=== PATIENT | female | born 1985 | race Caucasian/White ===

== ENCOUNTER 2024-04-29 19:50 | Emergency (ER) | payer OTHER, SELFPAY ==
[2024-04-29 20:04] VITALS: BP 125/78; PULSE 105; TEMP 36.8; O2SAT 98; BMI 55.2
--- NOTE | 2024-04-29 20:22 | ED_ITS ---
HPI HPI - General Adult General Chief complaint: Back Pain/Injury Stated complaint: BACK PAIN Time Seen by Provider: 04/29/24 19:53 Source: patient Mode of arrival: walk-in Limitations: no limitations History of Present Illness HPI narrative: Patient is a 38-year-old female who presents to the emergency department for evaluation of right posterior hip pain radiating into the right leg. Patient states she has a history of right-sided sciatica similarly in the past and last had imaging about 3 years ago. She states she was at work when she ana her back going down icy stairs. She had no fall to the ground or direct trauma. She has not had any bowel or bladder incontinence. She does have pain radiating down the back of the right leg with occasional tingling. She has a possibility of . She is able to ambulate. Related Data Previous Rx's ?Medication ?Instructions ?Recorded methocarbamol 750 mg tablet 750 mg PO TID PRN pain #20 tabs 04/29/24 methylprednisolone 4 mg tablets in See Rx Instructions .Route 04/29/24 a dose pack (Medrol (Elmer)) .COMPLEX #21 ea ondansetron 4 mg disintegrating 4 mg PO Q6H PRN nausea and 04/29/24 tablet vomiting #12 tabs oxycodone-acetaminophen 5 mg-325 1 tab PO Q6H PRN pain 4 days #15 04/29/24 mg tablet (Percocet) tabs Allergies Allergy/AdvReac Type Severity Reaction Status Date / Time No Known Drug Allergies Allergy Verified 04/29/24 20:10 Opioid HPI Opioid Management Most Recent Opioid Data: Last Pain Scale 8 04/29/24 20:22 04/29/24 Last ED Pain Assessment 04/29/24 20:22 Review of Systems ROS Constitutional Denies: fever or chills Ears, nose, mouth, and throat Denies: throat pain or nasal congestion Respiratory Denies: shortness of breath Gastrointestinal Denies: nausea or vomiting Integumentary/Breast Denies: rash Neurological Reports: numbness in extremities Hematologic/Lymphatic Denies: easy bruising or easy bleeding PFSH PFSH Social History Little interest or pleasure in doing things: not at all Feeling down, depressed, or hopeless: not at all Exam Narrative Exam Narrative: Gen.: Awake, alert, in no distress Head: Normocephalic, atraumatic ENT: Moist mucous membranes Respiratory: No respiratory distress Back: No bony point tenderness of the lumbar spine with diffuse tenderness of the right paraspinal muscles of the lumbar spine and right posterior hip. Extremities: Moves extremities equally, normal dorsiflexion and plantarflexion of the lower extremities, normal hip flexion bilaterally. No decrease in sensation to the medial thighs Psych: Normal mood and affect Neuro: No focal neuro deficit Skin: Warm, dry, intact Constitutional Vital Signs, click to edit/add: Last Vital Signs Temp 98.2 F 04/29/24 20:04 Pulse 105 H 04/29/24 20:04 Resp 16 04/29/24 20:04 BP 125/78 04/29/24 20:04 Pulse Ox 98 04/29/24 20:04 Course Vital Signs Vital signs: Vital Signs Temperature 98.2 F 04/29/24 20:04 Pulse Rate 105 H 04/29/24 20:04 Respiratory Rate 16 04/29/24 20:04 Blood Pressure 125/78 04/29/24 20:04 Pulse Oximetry 98 04/29/24 20:04 Temperature 98.2 F 04/29/24 20:04 Pulse Rate 105 H 04/29/24 20:04 Respiratory Rate 16 04/29/24 20:04 Blood Pressure 125/78 04/29/24 20:04 Pulse Oximetry 98 04/29/24 20:04 Medical Decision Making MDM Narrative Medical decision making narrative: Exam is consistent with an acute exacerbation of right-sided sciatica secondary to lumbar strain at work. Pain medicated for pain in the ER and discharged on a course of analgesics. Rest, ice, gentle stretching. She has no focal neurodeficits in the ER. She has had previous imaging for sciatica for her b ack, she did not have any direct injury or trauma to the back last week so I do not feel additional imaging is indicated at this time. Return to the ER if symptoms change or worsen. SUPERVISED APC VISIT, PHYSICIAN ATTESTATION: Based on the medical record the care appears appropriate. ? Medical Records Medical records reviewed: Yes I reviewed the patient's medical records Discharge Plan Discharge Chief Complaint: Back Pain/Injury Clinical Impression: Acute right-sided back pain with sciatica Patient Disposition: Home, Self-Care Time of Disposition Decision: 20:17 Condition: Good Prescriptions / Home Meds: New oxycodone-acetaminophen [Percocet] 5-325 mg tablet 1 tab PO Q6H PRN (Reason: pain) 4 Days Qty: 15 0RF Rx Instructions: DX: M54.5 methocarbamol 750 mg tablet 750 mg PO TID PRN (Reason: pain) Qty: 20 0RF methylprednisolone [Medrol (Elmer)] 4 mg tablets,dose pack See Rx Instructions .ROUTE .COMPLEX Qty: 21 0RF Rx Instructions: Taper as directed ondansetron 4 mg tablet,disintegrating 4 mg PO Q6H PRN (Reason: nausea and vomiting) Qty: 12 0RF Print Language: Colombian Instructions: Sciatica (ED) Referrals: Physician,Non-Staff, MD [Primary Care Provider] - 1 week
[2024-04-29] MEDS: ORPHENADRINE 60 MG/ 2 ML VIAL IM (20:44)
[2024-04-29] MEDS: KETOROLAC TROMETHAMINE 60 MG/2 ML VIAL IM (20:44)
[2024-04-29] MEDS: OXYCODONE HCL/ACETAMINOPHEN 5MG/325MG 1 TAB PO (20:45)
== END 2024-04-29 20:55 | disposition home or self-care (01) ==
PROVIDERS: Emergency Provider Student in an Organized Health Care Education/Training Program
DX: M54.41 Lumbago with sciatica, right side (principal)
CPT/HCPCS: 96372; 99284; J1885; J2360

== ENCOUNTER 2024-06-16 15:22 | Emergency (ER) | payer BC, SELFPAY ==
[2024-06-16 15:25] VITALS: BP 126/80; PULSE 99; TEMP 36.8; O2SAT 98; BMI 25.0
--- OUTSIDE RECORDS SUMMARY | 2024-06-16 15:44 | XMS_ITS | CCD ---
Author Organization [facility] Care Team Providers Care Line Crew Supervisor Name Role Phone NO FAMILY, PHYSICIAN Primary Care Provider Unava ilable Radatz DO, Edward Attending Provider Radatz Jr, Edward Admitting Unavailable NO FAMILY, PHYSICIAN Primary Care Unavailable Radatz Jr, Edward Attending Unavailable Radatz Jr, Edward Admitting Unavailable NO FAMILY, PHYSICIAN Primary Care Unavailable Radatz Jr, Edward Attending Unavailable Radatz Jr, Edward Attending Unavailable Radatz Jr, Edward Admitting Unavailable NO FAMILY, PHYSICIAN Primary Care Unavailable Radatz Jr, Edward Admitting Unavailable NO FAMILY, PHYSICIAN Primary Care Unavailable Radatz Jr, Edward Attending Unavailable Radatz Jr, Edward Admitting Unavailable NO FAMILY, PHYSICIAN Primary Care Unavailable Radatz Jr, Edward Attending Unavailable Radatz Jr, Edward Admitting Unavailable NO FAMILY, PHYSICIAN Primary Care Unavailable Radatz Jr, Edward Attending Unavailable Radatz Jr, Edward Admitting Unavailable NO FAMILY, PHYSICIAN Primary Care Unavailable Radatz Jr, Edward Attending Unavailable Problems Problem Classification Problem Date Documented Da te Episodic/Chronic Sprains and strains (1 source) Strain of muscle, fascia and tendon of lower back, initial encounter; Translations: [Strain of muscle, fascia and tendon of lower back, initial encounter] Onset: 06-10-2024 Episodic Unclassified (1 source) Low back pain, unspecified; Translations: [Low back pain, unspecified] Onset: 05-28-2024 Results Test Name Value Interpretation Reference Range Facil ity Magnetic resonance imaging r eportOrdered By: Tom Hauser on 06-10-2024 Study report [facility] [place] [address] [place], [place] [id number] MRI Report Signed Patient: Isi Chong MR#: [id number] : 1985 Acct:[id number] Age/Sex: 39 / F ADM Date: 5 Loc: [facility] Room: Type: [facility] Attending Dr: Thor Coyne Jr, DO Copies to: Thor Coyne DO~ Ordering Provider: Thor Coyne DO Date of Service: 06/10/24 MR/MR lumbar spine wo con: S39.012A ([id number]) XR/XR pre/post mri xray: S39.012A 2 views of the lumbar spine and MRI of the lumbar spine performed without contrast INDICATION: Back injury in April, pain since COMPARISON: None FINDINGS: 2 views of the lumbar spine demonstrates maintenance of the lumbar vertebral heights. There is retrolisthesis L3 on L4 and L2-L3 measuring 3 mm and 4 mm respectively. There is moderate severe disc space narrowing L2-L3 and L5-S1 and mild disc space narrowing elsewhere. Tjfg-ci-xcxwwcmu facet arthropathy L4-S1. Mild degenerative changes of the sacroiliac joints. MRI lumbar spine: Lumbar vertebral heights are maintained. Minimal straightening. Degenerative endplate marrow changes L5-S1 L2-L3. The conus medullaris terminates normally at L1-L2. The paraspinal soft tissues are unremarkable T11-L1: No significant disease, disc protrusion central canal or neural from narrowing. L1-2: Broad-based disc bulge with small left subarticular protrusion. Mild facet arthropathy. Canal and neural foraminal are patent. L2-3: Circumferential bulge. Small superimposed central protrusion extending cranially. No central canal narrowing. There is minor neural foraminal narrowing. Mild facet arthropathy L3-4: Minimal broad-based bulge. Qegf-tr-vanvptfs facet arthropathy. No central canal or neural foraminal narrowing identified. L4-5: Broad-based disc bulge with intrinsic T2 hyperintensity both foramina zones suggestive of fissuring. Moderate facet arthropathy. Minimal neural foraminal narrowing. Canal is patent. L5-S1: Circumferential disc bulge with moderate subarticular zone extrusion measuring 1.1 x 2.1 x 1.4 cm size this displaces the traversing left S1 nerve roots. There may be minimal mass effect on the traversing right S1 nerve root as well. Mild canal narrowing. There is minimal neural foraminal narrowing. Moderate facet arthropathy. MR/MR lumbar spine wo con IMPRESSION: Degenerative changes notably at L2-3 and L5-S1 with moderate size disc extrusion at L5-S1 displacing the left S1 nerve root. Please correlate with left S1 radiculopathy. Otherwise negative for acute compression fracture. Otherwise Yfhb-ij-ppmztyex multilevel degenerative change. Impression dictated by: Tom Hauser M.D.06/10/2024 3:40 PM Dictation Location: [place] [address] Transcribed By: [facility] 06/10/24 1540 Dictated By: Tom Hauser MD 06/10/24 1530 Signed By: 06/10/24 1540 [facility] Work Phone: XR pre/post mri xrayon 06-10 XR pre/post mri xray [facility] [place] [address] MRI Report Signed Patient: Isi Chong MR#: [id number] : 1985 Acct:[id number] Age/Sex: 39 / F ADM Date: 06/10/24 Loc: [facility] Room: Type: [facility] Attending Dr: Thor Coyne Jr, DO Copies to: Thor Coyne DO Ordering Provider: Thor Coyne DO Date of Service: 06/10/24 MR/MR lumbar spine wo con: S39.012A ([id number]) XR/XR pre/post mri xray: S39.012A 2 views of the lumbar spine and MRI of the lumbar spine performed without contrast INDICATION: Back injury in April, pain since COMPARISON: None FINDINGS: 2 views of the lumbar spine demonstrates maintenance of the lumbar vertebral heights. There is retrolisthesis L3 on L4 and L2-L3 measuring 3 mm and 4 mm respectively. There is moderate severe disc space narrowing L2-L3 and L5-S1 and mild disc space narrowing elsewhere. Svrk-gc-zzpooghz facet arthropathy L4-S1. Mild degenerative changes of the sacroiliac joints. MRI lumbar spine: Lumbar vertebral heights are maintained. Minimal straightening. Degenerative endplate marrow changes L5-S1 L2-L3. The conus medullaris terminates normally at L1-L2. The paraspinal soft tissues are unremarkable T11-L1: No significant disease, disc protrusion central canal or neural from narrowing. L1-2: Broad-based disc bulge with small left subarticular protrusion. Mild facet arthropathy. Canal and neural foraminal are patent. L2-3: Circumferential bulge. Small superimposed central protrusion extending cranially. No central canal narrowing. There is minor neural foraminal narrowing. Mild facet arthropathy L3-4: Minimal broad-based bulge. Bjcr-eq-xtqqffys facet arthropathy. No central canal or neural foraminal narrowing identified. L4-5: Broad-based disc bulge with intrinsic T2 hyperintensity both foramina zones suggestive of fissuring. Moderate facet arthropathy. Minimal neural foraminal narrowing. Canal is patent. L5-S1: Circumferential disc bulge with moderate subarticular zone extrusion measuring 1.1 x 2.1 x 1.4 cm size this displaces the traversing left S1 nerve roots. There may be minimal mass effect on the traversing right S1 nerve root as well. Mild canal narrowing. There is minimal neural foraminal narrowing. Moderate facet arthropathy. MR/MR lumbar spine wo con IMPRESSION: Degenerative changes notably at L2-3 and L5-S1 with moderate size disc extrusion at L5- S1 displacing the left S1 nerve root. Please correlate with left S1 radiculopathy. Otherwise negative for acute compression fracture. Otherwise Mbik-sa-rwmlbzgl multilevel degenerative change. Impression dictated by: Tom Huaser M.D.06/10/2024 3:40 PM Dictation Location: [place] [address] Transcribed By: ROBINSON 06/10/24 1540 Dictated By: Tom Hauser MD 06/10/24 1530 Signed By: 06/10/[address] [facility] Encounters Encounter Date Encounter Type Care Provider Facility Start: 06-12-2024 End: 06-12-2024 ambulatory PHYSICIAN NO [facility] Work Phone: Start: 06-12-2024 End: 06-12-2024 Patient encounter procedure PHYSICIAN NO [facility] [address] Work Phone: Start: 06-10-2024 End: 06-10-2024 Patient encounter procedure PHYSICIAN NO [facility] [address] [facility] Work Phone: Start: 06-10-2024 End: 06-10-2024 ambulatory PHYSICIAN NO [facility] Work Phone: Start: 06-02-2024 End: 06-02-2024 Patient encounter procedure PHYSICIAN NO [facility] [address] Work Phone: Start: 06-02-2024 End: 06-02-2024 ambulatory PHYSICIAN NO [facility] Work Phone: Start: 05-28-2024 ambulatory Thor Galeas ty:[facility] Start: 05-28-2024 Registered Recurring PHYSICIAN NO [facility] [place] Work Phone: Start: 05-19-2024 End: 05-19-2024 Patient encounter procedure PHYSICIAN NO [facility] [address] Work Phone: Start: 05-19-2024 End: 05-19-2024 ambulatory PHYSICIAN NO [facility] Work Phone: Start: 05-14-2024 Registered Recurring PHYSICIAN NO [facility] [place] Work Phone: Start: 05-12-2024 End: 05-12-2024 ambulatory PHYSICIAN NO [facility] Work Phone: Start: 05-12-2024 End: 05-12-2024 Patient encounter procedure PHYSICIAN NO [facility] [address] Work Phone: Start: 05-06-2024 End: 05-06-2024 ambulatory PHYSICIAN NO [facility] Work Phone: Start: 05-06-2024 End: 05-06-2024 Patient encounter procedure PHYSICIAN NO [facility] [address] Work Phone: Procedures Date Procedure Procedure Detail Performing Clinician Start: 06-10-2024 MR lumbar spine wo con PHYSICIAN NO FAMILY Start: 06-10-2024 XR pre/post mri xray PH YSICIAN NO FAMILY Payers Date Payer Category Payer Self-pay 2024 Unknown [id number] 2.16.8 [id number] Unknown [id number] 2.16.8 [id number] Unknown [id number] 2.16.8 [id number] Unknown [id number] 2.16.8 [id number] Unknown [id number] 2.16.8 [id number] Unknown [id number] 2.16.8 [id number] Unknown [id number] 2.16.8 [id number] Social History Date Type Detail Facility Tobacco smoking stat [facility] Unknown if ever smoked [facility] Work Phone: Start: 05-12-2024 End: 06-16-2024 Sex Female (finding) [facility] Start: 1985 Sex Assigned At Female F [facility] Evaluation note Note Date & Type Note Facility Evaluation note No assessment information availa ble [facility] Work Phone: Chief Complaint and Reason for Visit Chief Complaint Admit Date S39.012A May 06, 2024 9 :00am Chief Complaint Admit Date S39.012A May 06, 2024 9 :00am S39.012A May 12, 2024 1 0:15am low back strain May 14, 2024 9 :15am S39.012A, M54.5 May 19, 2024 2 :06pm Chief Complaint Admit Date S39.012A May 06, 2024 9 :00am S39.012A May 12, 2024 1 0:15am S39.012A May 19, 2024 2 :06pm low back strain May 28, 2024 11:15am S39.012A June 02, 2024 1:53pm Chief Complaint Admit Date S39.012A May 06, 2024 9 :00am S39.012A May 12, 2024 1 0:15am S39.012A May 19, 2024 2 :06pm low back strain May 28, 2024 11:15am S39.012A June 02, 2024 1:53pm M54.5 S39.012A June 10, 2024 11:17am Chief Complaint Admit Date S39.012A May 06, 2024 9 :00am S39.012A May 12, 2024 1 0:15am S39.012A May 19, 2024 2 :06pm low back strain May 28, 2024 11:15am S39.012A June 02, 2024 1:53pm M54.5 S39.012A June 10, 2024 11:17am S39.012A June 12, 2024 1:00pm Family History No Family History Records Found Relationship Condition Age at Onset Recorded Date/T kira father Heart disease Unknown Hypertension Unknown mother Heart disease Unknown Advance Directives No Advanced Directives Records Found Advance Directive Response Recorded Date/ Time Advance Directives No May 07, 2024 1:49pm Summary Purpose Additional Source Comments Care Teams (unrecognized sec tion and content) Team Status: Active Member Role Status Dates PHYSICIAN NO FAMILY Primary Care Provider Active Team Status: Inactive Member Role Status Dates PHYSICIAN NO FAMILY Primary Care Provider Active Start: May 06, 2024 End: May 06, 2024 Thor Coyne Jr, DO Attending Provider Active S tart: May 06, 2024 End: May 06, 2024 Team Status: Inactive Member Role Status Dates PHYSICIAN NO FAMILY Primary Care Provider Active Start: May 12, 2024 End: May 12, 2024 Thor Coyne Jr, DO Attending Provider Active S tart: May 12, 2024 End: May 12, 2024 Team Status: Active Member Role Status Dates PHYSICIAN NO FAMILY Primary Care Provider Active Start: May 14, 2024 Thor Coyne Jr, DO Attending Provider Active S tart: May 14, 2024 Team Status: Inactive Member Role Status Dates PHYSICIAN NO FAMILY Primary Care Provider Active Start: May 19, 2024 End: May 19, 2024 Thor Coyne Jr, DO Attending Provider Active S tart: May 19, 2024 End: May 19, 2024 Team Status: Active Member Role Status Dates PHYSICIAN NO FAMILY Primary Care Provider Active Start: May 28, 2024 Thor Coyne Jr, DO Attending Provider Active S tart: May 28, 2024 Team Status: Inactive Member Role Status Dates PHYSICIAN NO FAMILY Primary Care Provider Active Start: June 02, 2024 End: June 02, 2024 Edtameka Coyne Jr, DO Attending Provider Active S tart: June 02, 2024 End: June 02, 2024 Team Status: Inactive Member Role Status Dates PHYSICIAN NO FAMILY Primary Care Provider Active Start: June 10, 2024 End: June 10, 2024 Edtameka Coyne Jr, DO Attending Provider Active S tart: June 10, 2024 End: June 10, 2024 Team Status: Inactive Member Role Status Dates PHYSICIAN NO FAMILY Primary Care Provider Active Start: June 12, 2024 End: June 12, 2024 Redtameka Doretha Miguel, DO Attending Provider Active S tart: June 12, 2024 End: June 12, 2024 Goals (unrecognized section and content) Goals may be documented in a n alternate sectionGoals may be documented in an alternate sectionGoals may be documented in an alternate sectionGoals may be documented in an alternate sectionGoals may be documented in an alternate sectionGoals may be documented in an alternate section INFORMATION SOURCE (unrecogn ized section and content) DATE CREATED AUTHOR 06/16/2024 [facility] FOR RECORDS PERTAINING TO PATIENTS WHO ARE OR HAVE BEEN ENROLLED IN A CHEMICAL DEPENDENCY/SUBSTANCEABUSE PROGRAM, SOME INFORMATION MAY BE OMITTED. This clinical summary was aggregated from multiple sources. Caution should be exercised in using it in the provision of clinical care. This summary normalizes information from multiple sources, and as a consequence, information in this document may materially change the coding, format and clinical context of patient data. In addition, data may be omitted in some cases. CLINICAL DECISIONS SHOULD BE BASED ON THE PRIMARY CLINICAL RECORDS. [facility]. provides no warranty or guarantee of the accuracy or completeness of information in this document.
--- NOTE | 2024-06-16 17:27 | ED.GENADUL1 ---
HPI HPI - General Adult General Chief complaint: Back Pain/Injury Stated complaint: Back Pain Time Seen by Provider: 06/16/24 15:57 Source: patient Mode of arrival: walk-in Limitations: no limitations History of Present Illness HPI narrative: Patient is a 39-year-old female who is presenting with acute on chronic pain. Patient works for the [employer], so does her who is at bedside as well. Patient appears to be in moderate to severe distress secondary to pain. Patient has no loss of urine or bowels in her pants. Patient has significant lower back pain, left lower back pain that radiates into the left buttock and down her left leg into her left pinky toe. Patient did have a MRI that was done on June 10, last week. Patient had a MRI of her lumbar spine without contrast . On June 10, last week. See the report has been scanned into the chart. Clinical patient on the MRI of the lumbar spine is degenerative changes notably at L2-3 and L5-S1 with moderate size disc of trusion at L5-S1 displacing the left S1 nerve root. Patient also has evidence of S1 radiculopathy that correlates with the MRI. Patient has oxycodone, Robaxin and ibuprofen at home. She has not been using the medication because she does not want to use pain medication but had 2 today. Patient used the oxycodone at 10 AM today, at 7 AM she use 1 Robaxin and ibuprofen 800 mg tablet. At 12 PM she took a second ibuprofen and her milligrams tablet. Patient has not taken any more pain medication, she called the office and was told to come to the ER if she is having severe pain. Patient has no new injury. 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 Patient recently had a twisting episode in April that reaggravated her pain. Patient has no rash. No abdominal pain. Patient has not been eating much because she cannot sit up to eat. Patient's been drinking somewhat. No bowel or bladder changes otherwise. is at bedside. All systems are negative except as noted/marked. All systems reviewed and otherwise negative. Nurses note and vital signs reviewed and patient is not hypoxic. When I walk into the room, patient is leaning over On her , is trying to stretch her lower back. Patient is in tears secondary to pain. General: The patient appears moderate to severe distress secondary to pain and discomfort. Patient is resting uncomfortably on cart. Patient is not toxic, lethargic, or listless Skin: Warm, dry, no pallor noted. There is no rash noted. No petechiae, purpura. Patient has no rash to her lower back or buttocks. Head: Normocephalic, atraumatic Eye: Normal conjunctiva, no drainage, EOMI. PERRL Ears, Nose, Mouth, and Throat: oral mucosa is moist. Nares patent. Mouth without vesicles. Cardiovascular: Regular Rate and Rhythm, no murmur, gallop, rub Respiratory: Patient is in no distress, no accessory muscle use, lungs are clear to auscultation, no wheezing, rales or rhonchi Back: non-tender, no CVA tenderness bilaterally to percussion. No CT LS midline pain GI: Soft, no tenderness to palpation, Musculoskeletal: Patient has full range of motion of all of the extremities except to lower extremity secondary to bilateral lower back pain. Patient has moderate to severe tenderness palpation to left piriformis muscle. Patient has moderate to severe lower lumbar tenderness to palpation midline and left paralumbar soft tissue. Patient has positive straight leg raising test bilateral. Patient has normal Achilles and patellar reflex on the right, patient has slight decrease Achilles reflex on the left, normal left patellar reflex. Patient has decreased sensation to the lateral aspect of her left lower extremity along the S1 nerve root. No new focal neurological deficits Neurological: A&O x4, normal speech, no signs of saddle anesthesia or cauda equina Psychiatric: Cooperative Related Data Previous Rx's ?Medication ?Instructions ?Recorded methocarbamol 750 mg tablet 750 mg PO TID PRN pain #20 tabs 04/29/24 ondansetron 4 mg disintegrating 4 mg PO Q6H PRN nausea and 04/29/24 tablet vomiting #12 tabs oxycodone-acetaminophen 5 mg-325 1 tab PO Q6H PRN pain 4 days #15 04/29/24 mg tablet (Percocet) tabs Allergies Allergy/AdvReac Type Severity Reaction Status Date / Time No Known Drug Allergies Allergy Verified 06/16/24 15:29 Opioid HPI Opioid Management Most Recent Opioid Data: Last Pain Scale 10 06/16/24 17:31 06/16/24 Last MAR Pain Assessment 06/16/24 17:31 PFSH PFSH Social History Little interest or pleasure in doing things: not at all Feeling down, depressed, or hopeless: not at all Exam Constitutional Vital Signs, click to edit/add: Last Vital Signs Temp 98.3 F 06/16/24 15:25 Pulse 85 06/16/24 17:40 Resp 18 06/16/24 17:40 BP 144/89 H 06/16/24 18:45 Pulse Ox 98 06/16/24 17:40 O2 Del Method Room Air 06/16/24 15:25 Course Vital Signs Vital signs: Vital Signs Temperature 98.3 F 06/16/24 15:25 Pulse Rate 99 H 06/16/24 15:25 Respiratory Rate 20 06/16/24 15:25 Blood Pressure 126/80 06/16/24 15:25 Pulse Oximetry 98 06/16/24 15:25 Oxygen Delivery Method Room Air 06/16/24 15:25 Temperature 98.3 F 06/16/24 15:25 Pulse Rate 85 06/16/24 17:40 Respiratory Rate 18 06/16/24 17:40 Blood Pressure 144/89 H 06/16/24 18:45 Pulse Oximetry 98 06/16/24 17:40 Oxygen Delivery Method Room Air 06/16/24 15:25 Medical Decision Making MDM Narrative Medical decision making narrative: Patient's MRI was discussed with the patient. Patient is using a family practitioner currently inquired to help order test. Patient has an appointment on Dr. Bryant on June 26. Patient has not seen Dr. Bryant previously. Patient will be given a IM injection of morphine, Valium, oral Zofran. I have paged Dr. Saint Griggs at 1725, he is technically not on-call for hospital at this time. Patient had ice applied 1719 and [address] Chanel twice with no return phone call. [address] Healy with immediate phone call return. Patient's case was presented to Dr. Healy in clearly explaining the significant amount of pain that she was having today in the ER, her treatment of oxycodone Robaxin and ibuprofen at home, having MRI of her lumbar spine last week and the need for neurosurgical evaluation and intervention potentially. Dr. Healy took the information and will get a hold of Dr. Saint Indu maloney and they will reach out to the patient tomorrow to help get patient in sooner than her scheduled June 26 appointment. Patient did feel better after morphine and Valium. Patient were very thankful for help on getting patient into the office potentially sooner. Patient understands use her home medication. Side effects of constipation were discussed. Possible treatment plans neurosurgery were discussed with patient and , but patient understand that I do not know exactly what intervention they will do, but general and education was discussed with them potential options. Patient has been very thankful for help and care. Patient will call Dr. Chanel office tomorrow if they do not receive a phone call tomorrow as well. Patient has no acute neurological deficits, no signs of saddle anesthesia, cauda equina. Discharge Plan Discharge Chief Complaint: Back Pain/Injury Clinical Impression: Left lumbosacral radiculopathy, Left-sided low back pain with left-sided sciatica Patient Disposition: Home, Self-Care Time of Disposition Decision: 18:35 Condition: Fair Prescriptions / Home Meds: No Action oxycodone-acetaminophen [Percocet] 5-325 mg tablet 1 tab PO Q6H PRN (Reason: pain) 4 Days Qty: 15 0RF Rx Instructions: DX: M54.5 methocarbamol 750 mg tablet 750 mg PO TID PRN (Reason: pain) Qty: 20 0RF ondansetron 4 mg tablet,disintegrating 4 mg PO Q6H PRN (Reason: nausea and vomiting) Qty: 12 0RF Print Language: Indonesian Instructions: Acute Low Back Pain (ED), Lumbar Radiculopathy (ED), Piriformis Syndrome (ED), Lower Back Exercises (ED) Additional Instructions: Continue ice 20 minutes on, 20 minutes off, do not use heat. Continue to use your medication at home as prescribed for pain, muscle relaxers and anti-inflammatories. Alternate Tylenol and either Motrin, Advil, or ibuprofen every 4 hours to help with pain. If you are having severe pain, substitute a [place] tablet instead of Tylenol. Do not take Tylenol and [place] at the same time, you may actually take too much Tylenol at 1 setting or in 1 day. Maximum Tylenol dose of Tylenol is 3000 mg a day. Maximum dose of either Motrin, Advil, or ibuprofen is 2400 mg a day. I have spoken to Dr. Healy, who is a partner of Dr. Saint Griggs. Dr. Healy will give her information to Dr. Chanel and hopefully move up your appointment sooner if they are able to. Call the office tomorrow for follow-up with Dr. Saint Griggs. I have spoken to Dr. Healy in the ER today. If you are having loss of urine or bowels in your pants, intractable pain, or any other acute complaints, return back to the ER. Referrals: Thor Coyne DO [Primary Care Provider] - 1 week Discharge Date/Time: 06/16/24 18:48
[2024-06-16] MEDS: ONDANSETRON 4 MG RAPDIS TABLET SL (17:31)
[2024-06-16] MEDS: DIAZEPAM 10 MG/2 ML SYRINGE 5 MG IM (17:31)
[2024-06-16] MEDS: MORPHINE SULFATE 4 MG/ML VIAL 8 MG IM (17:31)
[2024-06-16 17:40] VITALS: BP 145/99; PULSE 85; O2SAT 98
[2024-06-16 18:45] VITALS: BP 144/89
== END 2024-06-16 18:48 | disposition home or self-care (01) ==
PROVIDERS: Emergency Provider Emergency Medicine; PCP Emergency Medicine Emergency Medical Services
DX: M54.42 Lumbago with sciatica, left side (principal); M54.17 Radiculopathy, lumbosacral region
CPT/HCPCS: 96372; 99284; J2270; J3360; Q0162

== ENCOUNTER 2024-08-14 10:23 | Outpatient (OUT) | payer BC, SELFPAY ==
[2024-08-14 10:44] LABS: Basophils Absolute Auto 0.1 10^3/uL (0.0-0.1); Basophils Percent Auto 1.1 % (0.2-2.0); Eosinophils Absolute Auto 0.2 10^3/uL (0.0-0.7); Eosinophils Percent Auto 3.2 % (0.9-7.0); Hematocrit 37.7 % (36.0-48.0); Hemoglobin 12.5 g/dL (12.0-16.0); Immature Granulocytes Abs Auto 0.02 10^3/uL (0.00-0.03); Immature Granulocytes Pct Auto 0.4 % (0.0-0.5); Lymphocytes Absolute Auto 1.6 10^3/uL (1.2-3.8); Lymphocytes Percent Auto 33.6 % (20.5-60.0); Mean Corpuscular HGB Conc 33.2 g/dL (29.9-35.2); Mean Corpuscular Hemoglobin 31.7 pg (26.7-34.0); Mean Corpuscular Volume 95.7 fL (81.0-99.0); Mean Platelet Volume 9.5 fL (9.5-13.5); Monocytes Absolute Auto 0.4 10^3/uL (0.3-0.8); Monocytes Percent Auto 7.7 % (1.7-12.0); Neutrophils Absolute Auto 2.5 10^3/uL (1.4-6.5); Platelet Count 271 10^3/uL (150-450); Red Blood Count 3.94 10^6/uL (4.20-5.40); Red Cell Distribution Width 12.2 % (11.0-15.0); White Blood Count 4.7 10^3/uL (4.0-11.0)
[2024-08-14 11:08] LABS: Alanine Aminotransferase 17 U/L (14-59); Albumin Globulin Ratio 1.3; Albumin Level 3.9 g/dL (3.4-5.0); Alkaline Phosphatase 64 U/L (46-116); Anion Gap 10.9; Aspartate Amino Transferase 11 U/L (15-37); BUN Creatinine Ratio 17.5; Bilirubin Total 0.5 mg/dL (0.2-1.0); Calcium 8.9 mg/dL (8.5-10.1); Carbon Dioxide 30.5 mmol/L (21.0-32.0); Chloride 103 mmol/L (98-107); Chol HDL Ratio 2.2; Cholesterol 176 mg/dL (<=200); Estimated GFR (African America >60 (>=60 mL/min/1.73m^2); Estimated GFR (Non-African Ame >60 (>=60 mL/min/1.73m^2); Free T3 2.83 pg/mL (2.18-3.98); Globulin 3.1 g/dL; Glucose 88 mg/dL (74-106); HDL Cholesterol 81 mg/dL (40-60); Potassium 4.4 mmol/L (3.5-5.1); Sodium 140 mmol/L (136-145); Thyroid Stimulating Hormone 1.175 uIU/mL (0.358-3.740); Triglycerides 52 mg/dL (<=150); VLDL CHOLESTEROL 10.4 mg/dL
[2024-08-14 11:10] LABS: Estimated Average Glucose 97 mg/dL
== END 2024-08-14 10:24 | disposition home or self-care (01) ==
LOC: LAB 10:24
PROVIDERS: PCP Family Medicine; Visit Provider Family Medicine
DX: Z00.00 Encounter for general adult medical examination without abnormal findings (principal)
CPT/HCPCS: 36415; 80053; 80061; 83036; 84436; 84443; 84481; 85025

== ENCOUNTER 2024-08-19 08:20 | Outpatient (OUT) | payer BC, SELFPAY ==
--- NOTE | 2024-08-19 08:22 | MM_ITS ---
Patient Name: DONAVAN MCLEAN MR#: [id number] : 1985 Exam Date: 08/19/2024 Ordering Doctor: DR MIKIE CRAWFORD . RADIOLOGY REPORT PROCEDURE: MM TOMOSYNTHESIS SCREENING BI COMPARISON: None. INDICATIONS: Screening Calculator Name NCI Breast Cancer Risk Assessment Tool 5 Year Breast Cancer Risk 0.70% Lifetime Breast Cancer Risk 11.00% Personal Breast Cancer No Personal Ovarian Cancer No Treatments None Family Cancers Grandfather-paternal with colon cancer at age 81; Aunt-paternal with colon cancer at age 45; Cousin-paternal with colon cancer at age 24. LOCATION: [facility] [place] BREAST COMPOSITION: There are scattered areas of fibroglandular density. FINDINGS: DIAGNOSTIC CATEGORY 1--NEGATIVE. RIGHT BREAST: No significant suspicious finding. LEFT BREAST: No significant suspicious finding. RECOMMENDATIONS: ROUTINE MAMMOGRAM AND CLINICAL EVALUATION IN 12 MONTHS. PLEASE NOTE: A NORMAL MAMMOGRAM DOES NOT EXCLUDE THE POSSIBILITY OF BREAST CANCER. A CLINICALLY SUSPICIOUS PALPABLE LUMP SHOULD BE BIOPSIED. Dictated by: Kamran Retana DO on 08/19/2024 at 16:04 Approved by: Kamran Retana DO on 08/19/2024 at 16:06
== END 2024-08-19 08:21 | disposition home or self-care (01) ==
LOC: MAMMO 08:20
PROVIDERS: PCP Family Medicine; Visit Provider Family Medicine
DX: Z12.31 Encounter for screening mammogram for malignant neoplasm of breast (principal); Z00.00 Encounter for general adult medical examination without abnormal findings; Z80.0 Family history of malignant neoplasm of digestive organs
CPT/HCPCS: 77063; 77067

== ENCOUNTER 2024-09-15 12:40 | Outpatient (OUT) | payer BC, SELFPAY ==
--- OUTSIDE RECORDS SUMMARY | 2024-09-15 13:03 | XMS_ITS | CCD ---
Author Organization [facility] MEDICAL INFORMATION OFFICER [facility] Care Team Providers Care Phone Operator Name Role Phone NO FAMILY, PHYSICIAN Primary Care Provider Unava ilable Radatz DO, Edward Attending Provider Angelo De Guzman Primary Care Physician [phone] Herman CARRILLO Attending Unavailable Angelo De Guzman Referring Unavailable NO FAMILY, PHYSICIAN Primary Care Provider Unava ilable Radatz DO, Edward Attending Provider Radatz Jr, Edward Attending Unavailable Radatz Jr, Edward Admitting Unavailable NO FAMILY, PHYSICIAN Primary Care Unavailable NO FAMILY, PHYSICIAN Primary Care Unavailable Radatz Jr, Edward Admitting Unavailable Radatz Jr, Edward Attending Unavailable NO FAMILY, PHYSICIAN Primary Care Unavailable Radatz Jr, Edward Admitting Unavailable Radatz Jr, Edward Attending Unavailable Radatz Jr, Edward Attending Unavailable Radatz Jr, Edward Admitting Unavailable NO FAMILY, PHYSICIAN Primary Care Unavailable NO FAMILY, PHYSICIAN Primary Care Unavailable Radatz Jr, Edward Attending Unavailable Radatz Jr, Edward Admitting Unavailable Radatz Jr, Edward Attending Unavailable NO FAMILY, PHYSICIAN Primary Care Unavailable Radatz Jr, Edward Admitting Unavailable Radatz Jr, Edward Attending Unavailable NO FAMILY, PHYSICIAN Primary Care Unavailable Radatz Jr, Edward Admitting Unavailable Radatz Jr, Edward Attending Unavailable Radatz Jr, Edward Admitting Unavailable NO FAMILY, PHYSICIAN Primary Care Unavailable NO FAMILY, PHYSICIAN Primary Care Unavailable Radatz Jr, Edward Admitting Unavailable Radatz Jr, Edward Attending Unavailable Allergies Allergy Classification Reported Allergen(s) Allergy Type Date of Onset Reaction(s) Facility (1 source) No Known Medication Allergies; Translations: [No Known Medication Allergies] Propensity to adverse reactions (disorder) [facility] Repository Medications Current Medications Medication Drug Class(es) Dates Sig (Normalized) Sig (Original) gabapentin 300 mg oral capsule (1 source) Anti-epileptic Agent Start: 08-24-2024 take 1 capsule by mouth three times daily gabapentin 300 mg Cap 300 mg = 1 cap(s), Oral, TID, Refills(s) 0 Start Date: 08/24/24 Status: Ordered Repeat number: 1 ibuprofen 800 mg oral tablet (1 source) Nonsteroidal Anti-inflammatory Drug Start: 09-02-2024 take 1 tablet by mouth three times daily as needed for pain ibuprofen 800 mg Tab 800 mg = 1 tab(s), Oral, TID, PRN as needed for pain, Refills(s) 0 Start Date: 09/02/24 Status: Ordered Repeat number: 1 methocarbamol 750 mg oral tablet (1 source) Muscle Relaxant Start: 08-24-2024 take 1 tablet by mouth every four hours methocarbamol 750 mg Tab 750 mg = 1 tab(s), Oral, q4hr, Refills(s) 0 Start Date: 08/24/24 Status: Ordered Repeat number: 1 Problems Active Problems Problem Classification Problem Date Documented Da te Episodic/Chronic Other nutritional; endocrine; and metabolic disorders (1 source) Overweight 08-24-2024 Episodic Other nutritional; endocrine; and metabolic disorders (1 source) Overweight in adulthood with body mass index of 25 or more but less than 30 09-02-2024 Episodic Residual codes; unclassified (1 source) Family history of malignant neoplasm of digestive organ; Translations: [Family history of malignant neoplasm of digestive organs] Onset: 09-02-2024 Episodic Residual codes; unclassified (1 source) Family history of cancer of colon 08-24-2024 Episodic Spondylosis; intervertebral disc disorders; other back problems (1 source) Disorder of lumbar disc 09-02-2024 Chronic Unclassified (1 source) Low back pain, unspecified; Translations: [Low back pain, unspecified] Onset: 05-28-2024 Past or Other Problems Problem Classification Problem Date Documented Da te Episodic/Chronic Sprains and strains (1 source) Strain of muscle, fascia and tendon of lower back, initial encounter; Translations: [Strain of muscle, fascia and tendon of lower back, initial encounter] Onset: 06-10-2024 Episodic Results Test Name Value Interpretation Reference Range Facil ity Ambulatory Visit Summaryon 0 09-02-2024 Ambulatory Visit Summary Ambulatory Visit Summary DONAVAN MCLEAN :1985 Visit Date:09/02/2024 Ambulatory Visit Instructions Your Diagnosis Family history of colon cancer Your Care Team Attending Physician - Herman CARRILLO MD Primary Care Physician - Angelo De Guzman MD Referring Physician - Angelo De Guzman MD This Is Your Medications List Contact prescribing physician if questions or concerns gabapentin (gabapentin 300 mg Cap) ibuprofen (ibuprofen 800 mg Tab) methocarbamol (methocarbamol 750 mg Tab) Procedures Performed Breast augmentation. Discharge Vitals Heart Rate (Peripheral) 70 Respiratory Rate 16 Blood Pressure 110/82 Height 167.6 cm Height 66 in Weight 70.6 kg Weight 155.646 lb BMI 25.13 Medications What How Much When Instructions Unchanged gabapentin (gabapentin 300 mg Cap) 1 Capsules By Mouth 3 times a day Contact prescribing physician if questions or concerns Unchanged ibuprofen (ibuprofen 800 mg Tab) 1 Tablets By Mouth 3 times a day as needed for as needed for pain Contact prescribing physician if questions or concerns Unchanged methocarbamol (methocarbamol 750 mg Tab) 1 Tablets By Mouth Every 4 hours Contact prescribing physician if questions or concerns Allergies No Known Allergies No Known Medication Allergies Problems Ongoing - Any problem that you are currently receiving treatment for. Family history of colon cancer Lumbar disc disease Overweight Patient Survey You may receive a survey via text or e-mail asking about your office visit. Please share your experience with us by completing your survey. We appreciate your feedback and thank you for choosing us for your care. Normal [facility] Magnetic resonance imaging r eportOrdered By: Tom Hauser on 06-10-2024 Study report [facility] [address] MRI Report Signed Patient: Donavan Mclean MR#: [id number] : 1985 Acct:[id number] Age/Sex: 39 / F ADM Date: 5 [facility] Room: Type: [facility] CLI Attending Dr: Thor Coyne Jr, DO Copies to: Thor Coyne DO~ Ordering Provider: Thor Coyne DO Date of Service: 06/10/24 MR/MR lumbar spine wo con: S39.012A ([id number]) XR/XR pre/post mri xray: S39.012A 2 views [...] L5-S1 and mild disc space narrowing elsewhere. Jgsu-hi-urhtsibw facet arthropathy L4-S1. Mild degenerative changes of [...] Mild facet arthropathy L3-4: Minimal broad-based bulge. Szqy-wf-zozbednt facet arthropathy. No central canal or neural [...] Otherwise negative for acute compression fracture. Otherwise Rzil-ow-akfpxxom multilevel degenerative change. Impression dictated by: Tom Hauser M.D.06/10/2024 3:40 PM Dictation Location: [place] [address] Transcribed By: [facility] 06/10/24 4943 Dictated By: Tom Hauser MD 06/10/24 1530 Signed By: 06/10/24 154 [facility] Work Phone: XR pre/post mri xrayon 06-10 XR pre/post mri xray [facility] [place] [address] [place], [place] [address] MRI Report Signed Patient: Donavan Mclean MR#: [id number] : 1985 Acct:[id number] Age/Sex: 39 / F ADM Date: 06/10/24 [facility] Room: Type: [facility] CLI Attending Dr: Thor Coyne Jr, DO Copies to: Thor Coyne DO Ordering Provider: Thor Coyne DO Date of Service: 06/10/24 MR/MR lumbar spine wo con: S39.012A ([id number]) XR/XR pre/post mri xray: S39.012A 2 views [...] L5-S1 and mild disc space narrowing elsewhere. Qbay-pn-woolqgbi facet arthropathy L4-S1. Mild degenerative changes of [...] Mild facet arthropathy L3-4: Minimal broad-based bulge. Qyya-iy-kntklkbi facet arthropathy. No central canal or neural [...] Otherwise negative for acute compression fracture. Otherwise Eqpi-to-mmqysqtd multilevel degenerative change. Impression dictated by: Tom Hauser M.D.06/10/2024 3:40 PM Dictation Location: [facility] Transcribed By: [facility] 06/10/24 1540 Dictated By: Tom Hauser MD 06/10/24 1530 Signed By: 06/10/24 1540 Normal [facility] Vital Signs Date Time Vital Sign Value Performing Clinician Diana bone 09-02-2024 14:13-0400 Blood Pressure Location Herman CARRILLO [facility] [place] 09-02-2024 14:13-0400 Diastolic blood pressure 82 mm[Hg] Herman URBANOL [facility] [place] 09-02-2024 14:13-0400 Heart rate 70 /min Herman URBANOL [facility] [place] 09-02-2024 14:13-0400 Respiratory rate 16 /min Herman URBANOL [facility] 09-02-2024 14:13-0400 Systolic blood pressure 110 mm[Hg] Herman URBANOL [facility] Encounters Encounter Date Encounter Type Care Provider Facility Start: 09-11-2024 End: 09-11-2024 Patient encounter procedure PHYSICIAN NO [facility] [address] Work Phone: Start: 09-11-2024 End: 09-11-2024 ambulatory PHYSICIAN NO [facility] Work Phone: Start: 09-02-2024 End: 09-02-2024 ambulatory Herman R NILL Facility:[facility] Start: 09-02-2024 End: 09-02-2024 Patient encounter procedure Herman R NILL [facility] [place] Start: 08-13-2024 ambulatory Herman NILL Facility:[facility] [place] Start: 07-24-2024 End: 07-24-2024 Patient encounter procedure PHYSICIAN NO [facility] [address] Work Phone: Start: 07-24-2024 End: 07-24-2024 ambulatory PHYSICIAN NO [facility] Work Phone: Start: 06-12-2024 End: 06-12-2024 ambulatory PHYSICIAN NO [facility] Work Phone: Start: 06-12-2024 End: 06-12-2024 Patient encounter procedure PHYSICIAN NO [facility] [address] Work Phone: Start: 06-10-2024 End: 06-10-2024 Patient encounter procedure PHYSICIAN NO [facility] [address] [facility] Work Phone: Start: 06-10-2024 End: 06-10-2024 ambulatory PHYSICIAN NO [facility] Work Phone: Start: 06-02-2024 End: 06-02-2024 Patient encounter procedure PHYSICIAN NO [facility] [address] Work Phone: Start: 06-02-2024 End: 06-02-2024 ambulatory PHYSICIAN NO [facility] Work Phone: Start: 05-28-2024 End: 05-28-2024 ambulatory PHYSICIAN NO [facility] Work Phone: Start: 05-28-2024 End: 05-28-2024 Discharged Recurring PHYSICIAN NO [facility] [place] Work Phone: Start: 05-28-2024 Registered Recurring PHYSICIAN NO [facility] [place] Work Phone: Start: 05-19-2024 End: 05-19-2024 Patient encounter procedure PHYSICIAN NO [facility] [address] Work Phone: Start: 05-19-2024 End: 05-19-2024 ambulatory PHYSICIAN NO [facility] Work Phone: Start: 05-14-2024 Registered Recurring PHYSICIAN NO [facility] [place] Work Phone: Start: 05-12-2024 End: 05-12-2024 ambulatory PHYSICIAN NO [facility] Work Phone: Start: 05-12-2024 End: 05-12-2024 Patient encounter procedure PHYSICIAN NO [facility] [address] Work Phone: Start: 05-06-2024 End: 05-06-2024 ambulatory PHYSICIAN NO [facility] Work Phone: Start: 05-06-2024 End: 05-06-2024 Patient encounter procedure PHYSICIAN NO [facility] [address] Work Phone: Procedures Date Procedure Procedure Detail Performing Clinician Start: 06-10-2024 MR lumbar spine wo con PHYSICIAN NO FAMILY Start: 06-10-2024 XR pre/post mri xray PH YSICIAN NO [facility] Augmentation mammoplasty Last hael NILL Payers Date Payer Category Payer Self-pay 2024 Unknown [id number] 2012 Unknown [id number] 2012 Unknown [id number] 1985 Unknown [id number] 2.16.8 [id number] Unknown [id number] 2.16.8 [id number] Unknown [id number] 2.16.8 [id number] Unknown [id number] 2.16.8 [id number] Unknown [id number] 2.16.8 [id number] Unknown [id number] 2.16.8 [id number] Unknown [id number] 2.16.8 [id number] Unknown [id number] 2.16.8 [id number] Unknown [id number] 2.16.8 [id number] Unknown [id number] 2.16.8 [id number] Social History Date Type Detail Facility Tobacco smoking stat [facility] Unknown if ever smoked [facility] Work Phone: Start: 05-12-2024 End: 09-12-2024 Sex Female (finding) [facility] Start: 1985 Sex Assigned At Female [facility] Start: 09-02-2024 Tobacco smoking status Never s moked tobacco (finding) [facility] [place] Tobacco smoking status Never [facility] [place] Sexual Orientation [facility] [place] Sex Assigned At Female [facility] Functional Status Date Assessment Result Facility 09-02-2024 Functional Status N/A [facility] [place] Clinical Note 09-02-2024 Note Date & Type Note Facility 09-02-2024 Note General Surgery Offi ce/Clinic Note Chief Complaint consultation for colonoscopy HPI Staff 39 year old female presents on consultation from Dr. De Guzman for surveillance colonoscopy. Denies abdominal or rectal pain. No rectal bleeding or change in bowel habits. Denies nausea, vomiting or weight loss. Never had colonoscopy in the past. Patient with family history of colon cancer in grandfather- age 80, aunt- age 45, cousin- age 25. History of Present Illness 39 yo female referred for colorectal screening; fmhx of colon cancer in patient's grandfather, dx at age 80; also Aunt and cousin with colon cancer under the age of 45; denies change in bms or blood in stools, no abd complaints; no abd operations or previous colonoscopy; no asa use, on ibuprofen prn; no tobacco use; no fmhx of IBD. Review of Systems PHQ Score Initial Depression Screen Score: 0 SCORE ROS - Provider Constitutional: no fever, no sweats, no weight loss. Eyes: no glasses, no blurred vision, no visual loss. ENMT: no dentures, no hoarseness, no swallowing difficulties, no hearing loss, no ear infection(s), no nose bleeds. Cardiovascular: normal blood pressure, no chest pain, regular heartbeat, no heart murmur. Respiratory: no shortness of breath, no cough, no asthma, no wheezing. Gastrointestinal: no nausea, no vomiting, no diarrhea, no constipation, no blood in stool, no change in bowel habits, no abdominal pain, no hepatitis. Genitourinary: no kidney stones, no urine infection, no dysuria. Musculoskeletal: no pain, no weakness. Skin: no changing moles, no rash, no skin lumps. Neurologic: no seizures, no epilepsy, no headache. Psychiatric: no emotional or psychiatric problem. Heme/Lymph: no bleeding problems, no anemia, no blood clots, no transfusions. Allergy/Immunologic: no swollen lymph nodes/glands, no IV drug abuse. Other: Additional ROS info: Except as noted in the above Review of Systems and in the History of Present Illness, all other systems have been reviewed and are negative or noncontributory. Physical Exam Vitals & Measurements HR: 70(Peripheral) RR: 16 BP: 110/82 HT: 66 in HT: 167.6 cm WT: 155.646 lb WT: 70.6 kg BMI: 25.13 HEENT: normal conjunctiva, sclera clear, no scleral icterus, EOM intact, PERRLA, oral mucosa moist without lesions. Neck: trachea midline, no mass, symmetric, no thyromegaly or nodules, no adenopathy Respiratory: lungs CTA, respirations non labored. Cardiovascular: regular rate and rhythm, no murmur, no pedal edema or varicosities. Gastrointestinal: soft, non distended, no tenderness, no masses, no palpable hernias, diastasis recti no, no hepatosplenomegaly; normal bs Lymphatic: no cervical adenopathy, no supraclavicular adenopathy. Musculoskeletal: normal gait, digits and nails without infection, nodes, cyanosis, clubbing. Skin: no rashes, no lesions, no ulcers, no subcutaneous nodules, induration. Psychiatric/Neuro: oriented to time, place, person, judgement normal, affect appropriate for age, insight intact, no focal deficits. Tests:, review of old records completed , Discussed surgical options, risks, and possible complications with patient. Assessment/Plan 1. Family history of colon cancer (Z80.0: Family history of malignant neoplasm of digestive organs) plan colonoscopy under anesthesia, informed consent obtained. Follow-up No qualifying data available Problem List/Past Medical History Ongoing BMI 25.0-25.9,adult Family history of colon cancer Lumbar disc disease Overweight Historical No qualifying data Procedure/Surgical History Breast augmentation. Medications gabapentin 300 mg Cap, 300 mg= 1 cap(s), Oral, TID ibuprofen 800 mg Tab, 800 mg= 1 tab(s), Oral, TID, PRN methocarbamol 750 mg Tab, 750 mg= 1 tab(s), Oral, q4hr Allergies No Known Allergies No Known Medication Allergies Social History Alcohol Current. Beer, Liquor. 1-2 times per week., 08/30/2024 Substance Abuse Never., 08/30/2024 Tobacco Never (less than 100 in lifetime) Tobacco Use:. Never Smokeless Tobacco Use:., 09/02/2024 Family History Heart disease: Mother. Hypertension: Mother. Multiple sclerosis: Father. Primary malignant neoplasm of colon: Aunt and Grandparent. [facility] Comment on above: Result Comment: Elec tronically Signed By: LORENA LINDO, Herman Foster\Date and Time Signed: 09/02/24 14:36 EDT Evaluation + Plan note Note Date & Type Note Facility Evaluation + Plan note No data available for this section [facility] [place] Evaluation note Note Date & Type Note Facility Evaluation note [facility] Discharge instructions Note Date & Type Note Facility Hospital Discharge instructions No data available for this section [facility] [place] Progress note Note Date & Type Note Facility Progress note No data available for this section [facility] [place] Chief Complaint and Reason for Visit Chief [...] 2024 11:17am S39.012A June 12, 2024 1:00pm Chief Complaint Admit Date S39.012A May 06, 2024 9 :00am S39.012A May 12, 2024 1 0:15am S39.012A May 19, 2024 2 :06pm low back strain May 28, 2024 11:15am S39.012A June 02, 2024 1:53pm M54.5 S39.012A June 10, 2024 11:17am S39.012A June 12, 2024 1:00pm M54.5, S39.012A,M54.16, M51.27 July 11:28am Chief Complaint Admit Date M54.5, S39.012A,M54.16, M51.27 July 11:28am M54.16, M51.27 September 11, 2024 10:56 am Family History No Family History Records Found Relationship Condition Age at Onset Recorded Date/T kira father Heart disease Unknown Hypertension Unknown mother Heart disease Unknown Advance Directives No Advanced Directives Records Found Advance Directive Response Recorded Date/ Time Advance Directives No May 07, 2024 1:49pm Advance Directive Response Recorded Date/ Time Advance Directives No May 07, 2024 2:49pm Summary Purpose Additional Source Comments Care Teams [...] June 02, 2024 End: June 02, 2024 Thor Coyne Jr, DO Attending Provider Active S tart: June 02, 2024 End: June 02, 2024 Team Status: Inactive Member Role Status Dates PHYSICIAN NO FAMILY Primary Care Provider Active Start: June 10, 2024 End: June 10, 2024 Thor Coyne Jr, DO Attending Provider Active S tart: June 10, 2024 End: June 10, 2024 Team Status: Inactive Member Role Status Dates PHYSICIAN NO FAMILY Primary Care Provider Active Start: June 12, 2024 End: June 12, 2024 Thor Coyne Jr, DO Attending Provider Active S tart: June 12, 2024 End: June 12, 2024 Team Status: Inactive Member Role Status Dates PHYSICIAN NO FAMILY Primary Care Provider Active Start: May 28, 2024 End: May 28, 2024 Thor Coyne Jr, DO Attending Provider Active S tart: May 28, 2024 End: May 28, 2024 Team Status: Inactive Member Role Status Dates PHYSICIAN NO FAMILY Primary Care Provider Active Start: July 24, 2024 End: July 24, 2024 Thor Coyne Jr, DO Attending Provider Active S tart: July 24, 2024 End: July 24, 2024 Team Status: Inactive Member Role Status Dates PHYSICIAN NO FAMILY Primary Care Provider Active Start: September 11, 2024 End: September 11, 2024 Thor Coyne Jr, DO Attending Provider Active S tart: September 11, 2024 End: September 11, 2024 Goals (unrecognized section and content) Goals [...] may be documented in an alternate section No data available for this sectionGoals may be documented in an alternate section INFORMATION SOURCE (unrecogn ized section and content) DATE CREATED AUTHOR 09/09/2024 [facility] DATE CREATED AUTHOR AUTHOR'S MARTÍN ATION 09/13/2024 [facility] FOR RECORDS PERTAINING TO PATIENTS [...] BE BASED ON THE PRIMARY CLINICAL RECORDS. [facility] [employer] [facility]. provides no warranty or guarantee of the accuracy or completeness of information in this document.
== END 2024-09-15 12:41 | disposition home or self-care (01) ==
LOC: PST 12:40
PROVIDERS: PCP Family Medicine; Visit Provider Surgery
DX: Z01.818 Encounter for other preprocedural examination (principal); Z80.0 Family history of malignant neoplasm of digestive organs; Z12.11 Encounter for screening for malignant neoplasm of colon

== ENCOUNTER 2024-09-23 07:33 | Day surgery (SDC) | payer BC, SELFPAY ==
--- NOTE | 2024-09-23 | OP_ITS ---
OPERATION DATE: 09/23/2024 PREOPERATIVE DIAGNOSIS: Family history of colon cancer. POSTOPERATIVE DIAGNOSIS: Normal colonoscopy to cecum. PROCEDURE: Colonoscopy to cecum. SURGEON: Herman Goldstein M.D. ANESTHESIA: Monitored anesthesia care. ESTIMATED BLOOD LOSS: Zero. INDICATIONS AND CONSENT: Patient is a 39-year-old female with a family history of colon cancer, presents for screening colonoscopy. Indications, risks, benefits, alternatives of proceeding with colonoscopy were explained extensively to the patient, including the risks of bleeding, colon perforation or anesthetic complications. All of her questions were answered. Informed consent was obtained. PROCEDURE: Patient brought to the operating room, placed in the left lateral decubitus position. Monitored anesthesia care was provided. Rectal exam was performed which showed no masses or blood. The scope was inserted into the anal canal. Under direct visualization was advanced. With the aid of abdominal compression, it was advanced to the cecum where cecal markings were clearly identified. There was noted to be a fair prep with a moderate amount of brown liquid stool throughout the colon that was able to be partially irrigated clear. Upon withdrawal of the scope, mucosal surfaces were carefully examined. There were no mass lesions or polyps. No inflammatory changes or ulcerations. No significant diverticulosis. The scope was retroflexed in the anal canal. There were prominent rectal veins. No significant hemorrhoidal disease. Scope was then withdrawn. Patient tolerated procedure well, was sent to recovery room in good condition. Follow up surveillance colonoscopy should be in five years, due to the family history. CC: Angelo De Guzman M.D. DUONG
--- OUTSIDE RECORDS SUMMARY | 2024-09-23 07:37 | XMS_ITS | CCD ---
Author Organization [facility] POLYMERIZATION HELPER [facility] Care Team Providers Care Washroom Operator Name Role Phone NO FAMILY, PHYSICIAN Primary Care Provider Unava ilable Radatz DO, Edward Attending Provider Angelo De Guzman Primary Care Physician Herman CARRILLO Attending Unavailable Angelo De Guzman [...] Care Unavailable Radatz Jr, Edward Attending Unavailable NO [...] Medication Allergies] Propensity to adverse reactions (disorder) [facility] Repository Medications Current Medications Medication Drug Class(es) [...] source) Disorder of lumbar disc 09-02-2024 Chronic Spondylosis; intervertebral disc disorders; other back problems (1 source) Radiculopathy, lumbar region; Translations: [Radiculopathy, lumbar region] Onset: 09-11-2024 Episodic Unclassified (1 source) Low back pain, [...] cancer Your Care Team Attending Physician - LORENA LINDO, Herman Dhillon Primary Care Physician - Angelo De Guzman [...] for choosing us for your care. Normal [facility] Magnetic resonance imaging r eportOrdered By: Tom Hauesr on 06-10-2024 Study report [facility] [place] [address] MRI Report Signed Patient: Donavan Mclean MR#: [id number] : 1985 Acct:[id number] Age/Sex: 39 / F ADM Date: 5 [facility]: Type[facility] Attending Dr: Thor Coyne Jr, DO Copies to: Thor Coyne DO~ Ordering Provider: Thor Coyne DO Date of Service: 06/10/24 MR/MR lumbar spine wo con: S39.012A ([id number]) XR/XR pre/post mri xray: S39.012A 2 views [...] L5-S1 and mild disc space narrowing elsewhere. Xqrf-mi-hndvjehj facet arthropathy L4-S1. Mild degenerative changes of [...] Mild facet arthropathy L3-4: Minimal broad-based bulge. Elea-cl-hzntgnen facet arthropathy. No central canal or neural [...] Otherwise negative for acute compression fracture. Otherwise Elcm-ks-lmvrdhoi multilevel degenerative change. Impression dictated by: Tom Hauser M.D.06/10/2024 3:40 PM Dictation Location: [facility]-- Transcribed By: [facility] 06/10/24 1540 Dictated By: Tom Hauser MD 06/10/241529 Signed By: 06/10/24 1540 [facility] Work Phone: XR pre/post mri xrayon 06-10 XR pre/post mri xray [facility] [place] [address] [place] [address] MRI Report Signed Patient: Donavan Mclean MR#: [id number] : 1985 Acct:[id number] Age/Sex: 39 / F ADM Date: 06/10/24 Loc: [facility] Room: Type: [facility] Attending Dr: Thor Coyne Jr, DO Copies to: Thor Coyne DO Ordering Provider: Thor Coyne DO Date of Service: 06/10/24 MR/MR lumbar spine wo con: S39.012A ([id number]) XR/XR pre/post mri xray: S39.012A 2 views [...] L5-S1 and mild disc space narrowing elsewhere. Bhgf-fp-kgkytnvr facet arthropathy L4-S1. Mild degenerative changes of [...] Mild facet arthropathy L3-4: Minimal broad-based bulge. Ymyx-at-nxnyrxep facet arthropathy. No central canal or neural [...] Otherwise negative for acute compression fracture. Otherwise Tatn-vc-vqympzpm multilevel degenerative change. Impression dictated by: Tom Hauser M.D.06/10/2024 3:40 PM Dictation Location: [facility]- Transcribed By: [facility] 06/10/24 1540 Dictated By: Tom Hauser MD 06/10/24 1530 Signed By: 06/10/24 1540 Normal [facility] Vital Signs Date Time Vital Sign Value Performing Clinician Diana bone 09-02-2024 14:13-0400 Blood Pressure Location Herman CARRILLO [facility] [place] 09-02-2024 14:13-0400 Diastolic blood pressure 82 mm[Hg] Herman CARRILLO [facility] [place] 09-02-2024 14:13-0400 Heart rate 70 /min Herman CARRILLO [facility] [place] 09-02-2024 14:13-0400 Respiratory rate 16 /min Herman CARRILLO [facility] [place] 09-02-2024 14:13-0400 Systolic blood pressure 110 mm[Hg] Herman CARRILLO [facility] [place] Encounters Encounter Date Encounter Type Care Provider Facility Start: 09-11-2024 End: 09-11-2024 Patient encounter procedure PHYSICIAN NO [facility] [address] Work Phone: Start: 09-11-2024 End: 09-11-2024 ambulatory PHYSICIAN NO [facility] Work Phone: Start: 09-02-2024 End: 09-02-2024 ambulatory Herman Dhillon NILL Facility: [facility] Start: 09-02-2024 End: 09-02-2024 [facility] Start: 08-13-2024 ambulatory Herman URBANOL Facility:[facility] Start: 07-24-2024 End: 07-24-2024 Patient encounter procedure PHYSICIAN NO [facility] [address] Work Phone: Start: 07-24-2024 End: 07-24-2024 ambulatory PHYSICIAN NO [facility] Work Phone: Start: 06-12-2024 End: 06-12-2024 ambulatory PHYSICIAN NO [facility] Work Phone: Start: 06-12-2024 End: 06-12-2024 Patient encounter procedure PHYSICIAN NO [facility] [address] Work Phone: Start: 06-10-2024 End: 06-10-2024 Patient encounter procedure PHYSICIAN NO [facility] [address] [facility] Work Phone: Start: 06-10-2024 End: 06-10-2024 ambulatory PHYSICIAN NO [facility] Work Phone: Start: 06-02-2024 End: 06-02-2024 Patient encounter procedure PHYSICIAN NO [facility] [address] Work Phone: Start: 06-02-2024 End: 06-02-2024 ambulatory PHYSICIAN NO [facility] Work Phone: Start: 05-28-2024 End: 05-28-2024 ambulatory PHYSICIAN NO [facility] Work Phone: Start: 05-28-2024 End: 05-28-2024 Discharged Recurring PHYSICIAN NO [facility] [place] Work Phone: Start: 05-28-2024 Registered Recurring PHYSICIAN NO [facility] [place] Work Phone: Start: 05-19-2024 End: 05-19-2024 Patient encounter procedure PHYSICIAN NO [facility] [address] Work Phone: Start: 05-19-2024 End: 05-19-2024 ambulatory PHYSICIAN NO [facility] Work Phone: Start: 05-14-2024 Registered Recurring PHYSICIAN NO [facility] [place] Work Phone: Start: 05-12-2024 End: 05-12-2024 ambulatory PHYSICIAN NO [facility] Work Phone: Start: 05-12-2024 End: 05-12-2024 Patient encounter procedure PHYSICIAN NO [facility] [address] Work Phone: Start: 05-06-2024 End: 05-06-2024 ambulatory PHYSICIAN NO [facility] Work Phone: Start: 05-06-2024 End: 05-06-2024 Patient encounter procedure PHYSICIAN NO [facility] [address] Work Phone: Procedures Date Procedure Procedure Detail Performing Clinician Start: 06-10-2024 MR lumbar spine wo con PHYSICIAN NO FAMILY Start: 06-10-2024 XR pre/post mri xray PH YSICIAN NO [facility] Augmentation mammoplasty Last hael NILL Payers Date Payer Category Payer Self-pay 2024 Unknown [id number] 2012 Unknown [id number] 2012 Unknown [id number] 1985 Unknown [id number] 2.16.8 [id number] Unknown [id number] 2.16.8 [id number] Unknown [id number] 2.16.8 [id number] Unknown [id number] 2.16.8 [id number] Unknown [id number] 2.16.8 [id number] Unknown [id number] 2.16.8 [id number] Unknown [id number] 2.16.8 [id number] Unknown [id number] 2.16.8 [id number] Unknown [id number] 2.16.8 [id number] Unknown [id number] 2.16.8 [id number] Social History Date Type Detail Facility [facility] Work Phone: Start: 05-12-2024 End: 09-12-2024 Sex Female (finding) [facility] Start: 1985 Sex Assigned At Female F [facility] Start: 09-02-2024 Tobacco smoking status Never s moked tobacco (finding) [facility] [place] Tobacco smoking status Never [facility] [place] Sexual Orientation [facility] [place] Sex Assigned At Female [facility] Functional Status Date Assessment Result Facility 09-02-2024 Functional Status N/A [facility] [place] Clinical Note 09-02-2024 Note Date & Type [...] malignant neoplasm of colon: Aunt and Grandparent. [facility] Comment on above: Result Comment: Elec tronically Signed By: LORENA LINDO, Herman Foster\Date and Time Signed: 09/02/24 14:36 EDT Evaluation + Plan note Note Date & Type Note Facility Evaluation + Plan note No data available for this section [facility] [place] Evaluation note Note Date & Type Note Facility Evaluation note No assessment information [facility] Work Phone: Hospital Discharge instructions Note Date & Type Note Facility Hospital Discharge instructions No data available for this section [facility] [place] Progress note Note Date & Type Note Facility Progress note No data available for this section [facility] [place] Chief Complaint and Reason for Visit Chief [...] Active Start: May 28, 2024 Thor Coyne Jr DO Attending Provider Active S tart: May [...] 2024 End: June 10, 2024 Thor Coyne Jr DO Attending Provider Active S tart: June 10, 2024 End: June 10, 2024 Team Status: Inactive Member Role Status Dates PHYSICIAN NO FAMILY Primary Care Provider Active Start: June 12, 2024 End: June 12, 2024 Thor Coyne Jr DO Attending Provider Active S tart: June 12, 2024 End: June 12, 2024 Team Status: Inactive Member Role Status Dates PHYSICIAN NO FAMILY Primary Care Provider Active Start: May 28, 2024 End: May 28, 2024 Thro Coyne Jr, DO Attending Provider Active S [...] section and content) DATE CREATED AUTHOR 09/09/2024 [facility] DATE CREATED AUTHOR AUTHOR'S MARTÍN ATION 09/16/2024 [facility] FOR RECORDS PERTAINING TO PATIENTS WHO [...] BE BASED ON THE PRIMARY CLINICAL RECORDS. [facility] [employer] 2000 [facility]. provides no warranty or guarantee of the accuracy or completeness of information in this document.
[2024-09-23 07:40] VITALS: BP 112/73; PULSE 77; TEMP 36.2; O2SAT 98; BMI 25.7
[2024-09-23] MEDS: 0.9 % SODIUM CHLORIDE 500 ML 50 ML IV (08:01)
[2024-09-23 08:06] LABS: HCG Qualitative NEGATIVE (NEGATIVE); Internal Control Within Normal Limits
[2024-09-23 09:43] VITALS: BP 101/62; PULSE 75; TEMP 36.5; O2SAT 97
[2024-09-23 09:58] VITALS: BP 122/80; PULSE 66; O2SAT 100
[2024-09-23 10:13] VITALS: BP 122/78; PULSE 65; TEMP 36.5; O2SAT 100
== END 2024-09-23 10:13 | disposition home or self-care (01) ==
LOC: SURGOUT 07:34
PROVIDERS: PCP Family Medicine; Visit Provider Surgery
PROC: (CPT 00811; principal; 2024-09-23 08:50)
DX: Z12.11 Encounter for screening for malignant neoplasm of colon (principal); Z80.0 Family history of malignant neoplasm of digestive organs; I10 Essential (primary) hypertension; K21.9 Gastro-esophageal reflux disease without esophagitis
CPT/HCPCS: 00811; 45378; 36415; 84703; J2704

== ENCOUNTER 2024-10-21 08:19 | Outpatient (OUT) | payer BC, SELFPAY ==
--- OUTSIDE RECORDS SUMMARY | 2024-08-12 11:30 | XMS_ITS ---
Author Organization [facility] in [place] Address [address] [place] [address] Care Team Providers Care Office Assistant Receptionist Name Role Phone Gege Sebastian Primary Care Provider Allergies No Known Allergies Reason For Referral Reason screenign colonoscop y - + FH young - 45 year ok abd 23 year old Diagnosis 1 Well adult (Z00.00) Referral Organization [facility] Referring Provider First Name Sebastian Referring Provider Last Name Gege Referring Provider Speciality Family Med cliff Referred Provider Herman Goldstein Referred Provider Specialty General Surg scotty Referral Priority Routine REASON FOR VISIT new patient Medications Medication SIG (Take, Route, Fr equency, Duration) Notes Start Date End Date Status Methocarbamol 750 MG 1 tablet Orally every 4 hrs Active Gabapentin 300 MG 1 capsule Orally tid Active Social History Tobacco Use: Social History Observation Description Date Details (start date - stop date) Never Smoker NA - NA Tobacco Control (Standard) Question Answer Notes Tobacco use: Nonsmoker AUDIT-C (Standard) Question Answer Notes Did you have a drink contain ing alcohol in the past year? Yes How often did you have a dri nk containing alcohol in the past year? Monthly or less (1 point) How many drinks did you have on a typical day when you were drinking in the past year? 1 or 2 drinks (0 point) How often did you have six o r more drinks on one occasion in the past year? 2 to 4 times a month (2 points) Points 3 Interpretation Positive Problems Problem Type SNOMED Code ICD Code Onset Dates Problem Status W/U Status Risk Notes Problem Well adult (899415444) Well adult (Z00.00) Active confirmed Vital Signs Weight 159.0 lbs 08/12/2024 Height 66 in 08/12/2024 Blood pressure systolic 124 mm Hg 08/13/19 25 Blood pressure diastolic 80 mm Hg 025 BMI 25.66 kg/m2 08/12/2024 Encounters Encounter Location Date Provider Diagnosis [facility] [address] [place] [address] 08/12/2024 Sebastian De Guzman Well adult Z00.0 0 Assessments Encounter Date Diagnosis (ICD Code) Assessment Notes Treatment Notes Treatment Clinical Notes Section Notes 08/12/2024 Well adult (ICD-10 - Z00.00) Plan Of Treatment Pending Test Test Name Order Date HEMOGLOBIN A1C (GLYCO) 08/12/2024 LIPID PANEL (CHOL/TRIG/HDL/LDL) 08/13/19 25 THYROID PANEL (T4/TSH/FREE T3) 5 MM screening mammo BI 08/12/2024 MM diagnostic mammo BI 08/12/2024 CMP (COMP MET MARTINEZ) w/eGFR CKD-EPI 2024 CBC WITH DIFF 08/12/2024 Referrals Referral Date Details 08/12/2024 08/12/2024, screenig n colonoscopy - + FH young - 45 year ok abd 25 year old, Herman Goldstein Next Appt Details Provider Name:Sebastian De Guzman, 10:00:00 AM, [address] [place], [address], Progress Notes * Isi MCLEANDOB:1985 (39 yo F)Acc No.[id number]:08/12/2024 New Patient Patient: Isi FRAUSTO Provider: Andres De Guzman ([facility])MD :1985 A ge:39 Y S ex:Female Date:08/12/2024 Address:[id number] Check In:03:14 PM ESTCheck O ut:03:38 PM EST Subjective: * Chief Complaints: * N ew patient * HPI: G eneral: low back pain - back is under worker scomp surgeon request and waiting + FH colon cancer - young fammliy members. D epression Screening: PHQ-2 (2015 Edition) L ittle interest or pleasure in doing things??Not at all F eeling down, depressed, or hopeless? N ot at all T otal Score 0 * ROS: E ENT: hearing changes d enies. v isual changes d enies.?non-healing mouth sores d enies. s wollen glands or neck lumps d enies. h oarseness d enies. s ore throat d enies. d ifficulty swallowing d enies. n ose bleeds d enies. n bethel congestion d enies. e ar ache d enies. e ar discharge?denies. r inging in ears d enies. l ight sensitivity d enies. e ye pain d enies. b lurring d enies. e ye irritation d enies. d ouble vision d enies.?vision loss d enies. G eneral/Constitutional: Sweats: D enies. F atigue d enies. S leep problems d enies. A norexia d enies. M alaise d enies. W eight loss d enies.?Fatigue or Weakness d enies. F ever or Chills d enies. C ardiovascular: Shortness of Breath w/lying flat d enies. L ightheadedness/dizziness d enies. C hest tightness/ heavy pressure d enies. S welling of legs, ankles, or feet d enies. W aking up with shortness of breath d enies. C hest pain denies. P alpitations d enies. W eight gain d enies. R espiratory: Chronic or frequent cough d enies. C oughing up blood?denies. D ifficulty breathing d enies. P roductive cough d enies. S noring?denies. S hortness of breath that awakens from sleep (PND) d enies. C hest pain d enies. S putum production d enies. W heezing d enies. M usculoskeletal: Joint pain d enies. J oint Fluid d enies. B ack pain d enies. K nee pain d enies. N daniel pain d enies. J oint Stiffness d enies. M uscle cramps d enies. W eakness of muscles d enies. A rthritis d enies. M uscle aches d enies. P ain in shoulder(s) d enies. S wollen joints d enies. * Active Problem List Z00.00 Well adult Modified On:08/12/2024W/U Status:confirmed * Medical History: * Surgical History: b reast augmentation 2019 * Hospitalization/Major Diagno stic Procedure: D enies Past Hospitalization * Family History: F ather: alive, ms. M other: alive, diagnosed with Unspecified essential hypertension, Unspecified heart disease. P aternal Grandfather: coloncancer, diagnosed with Other malignant neoplasm of unspecified site. M aternal Grandmother: alive, diagnosed with Unspecified essential hypertension, Unspecified heart disease. 1 sister(s) . 2 son(s) , 1 daughter(s) . . * Social History: T obacco Use: T obacco Control (Standard) T obacco use: N onsmoker D rug/Alcohol: A KENDAL-C (Standard) D id you have a drink containing alcohol in the past year? Y es H ow often did you have a drink containing alcohol in the past year? M onthly or less (1 point) H ow many drinks did you have on a typical day when you were drinking in the past year? 1 or 2 drinks (0 point) H ow often did you have six or more drinks on one occasion in the past year? 2 to 4 times a month (2 points) P oints 3 I nterpretation P ositive * Medications: T akingGabapentin 300 MG Capsule 1 capsule Orally tid Methocarbamol 750 MG Tablet 1 tablet Orally every 4 hrs Medication List reviewed and reconciled with the patientTaking Gabapentin 300 MG Capsule 1 capsule Orally tid Taking Methocarbamol 750 MG Tablet 1 tablet Orally every 4 hrs Medication List reviewed and reconciled with the patient * Allergies: N .K.D.A.no[Allergies Verified] Objective: * Vitals: W t:159.0lbs, Ht: 66 in, BP:124/80mm Hg, BMI:25.66Index, Ht-cm: 167.64 cm, Wt-k.12 kg. * Examination: P hysical Exam: GENERAL: w ell developed, well nourished, in no acute distress. HEAD: n ormocephalic/atraumatic. EYES: p upils equal, round and reactive to light, conjunctivae and sclerae normal. EARS: n o deformity or lesion of external ear, canals and TM appear normal bilaterally, TM's intact, not inflamed with normal light reflex, hearing grossly normal to conversational speech. NOSE: n o deformity, discharge, inflammation, or lesions.? MOUTH: m ucous membranes moist, normal oropharynx and posterior pharynx without lesions or exudates, tongue normal, dentition normal. NECK: n daniel supple, no masses or palpable cervical nodes, trachea midline, thyroid without nodules, masses, tenderness, or enlargement. CHEST: n o chest wall deformity, no chest wall tenderness.? LUNGS: n ormal respiratory effort and clear to auscultation, no wheezes, rales, or rhonchi, good air exchange. CARDIO: r egular rate and rhythm, normal S1 and S2, nor murmur, rub, or gallop. PULSES: n ormal capillary refill. ABDOMEN: s oft, non-distended, non-tender, no masses. MUSCULOSKELETAL: n o deformity or scoliosis noted, normal range of motion, joints normal, no erythema, edema, effusion, or ecchymosis. EXTREMITY: n o clubbing, cyanosis, edema, or deformity with normal ROM in both upper and lower bilateral extremities. NEUROLOGIC: g rossly normal. SKIN: n o rashes, ulcerations, or suspicious lesions. LYMPH NODES: n o cervical adenopathy, nodes normal. MENTAL STATUS: a lert and oriented x3, normal mood and affect. Assessment: * Assessment: 1. W ell adult - Z00.00 (Primary) Plan: * Treatment: * Procedure Codes: * Preventive Medicine: Screenings/Counseling: B [place] ACTION PLAN Above Normal BMI Follow-up D ietary management education, guidance, and counseling * * Sign off status: Completed Visit Status: C HK (Check Out) true * Provider: Andres De Guzman ([facility])MD Date: 0 08/12/2024 Generated for Printi ng/Arthur/eTransmitting on: 0 10/21/2024 08:22 AM EDT History and Physical Notes * HPI (History of Present Illness) Category Sub-Category Detail Notes Category Not es General low back pain - back is under worker scomp surgeon request and waiting + colon cancer - young fammliy members Depression Screening PHQ-2 (2015 Edition) Little interest or pleasure in doing things?: Not at all Feeling down, depressed, or hopeless?: N ot at all Total Score: 0 Examination Category Sub-Category Detail Notes Category Not es Physical Exam GENERAL: well developed, well nourished, in no acute distress HEAD: normocephalic/atraum atic EYES: pupils equal, round and reactive to light, conjunctivae and sclerae normal EARS: no deformity or lesi on of external ear, canals and TM appear normal bilaterally, TM's intact, not inflamed with normal light reflex, hearing grossly normal to conversational speech NOSE: no deformity, discha rge, inflammation, or lesions MOUTH: mucous membranes [address], normal oropharynx and posterior pharynx without lesions or exudates, tongue normal, dentition normal NECK: neck supple, no mass es or palpable cervical nodes, trachea midline, thyroid without nodules, masses, tenderness, or enlargement CHEST: no chest wall deform ity, no chest wall tenderness LUNGS: normal respiratory e ffort and clear to auscultation, no wheezes, rales, or rhonchi, good air exchange CARDIO: regular rate and rhy thm, normal S1 and S2, nor murmur, rub, or gallop PULSES: normal capillary ref ill ABDOMEN: soft, non-distended, non-tender, no masses RECTAL: MUSCULOSKELETAL: no deformity or scol iosis noted, normal range of motion, joints normal, no erythema, edema, effusion, or ecchymosis EXTREMITY: no clubbing, cyanosi s, edema, or deformity with normal ROM in both upper and lower bilateral extremities NEUROLOGIC: grossly normal SKIN: no rashes, ulceratio ns, or suspicious lesions LYMPH NODES: no cervical adenopat hy, nodes normal MENTAL STATUS: alert and oriented x 3, normal mood and affect Consultation Request Notes Referral Date Referring Provider Referred Provider Not es 08/12/2024 Sebastian De Gumzan Michael screenign colo noscopy - + FH young - 45 year ok abd 25 year old
--- OUTSIDE RECORDS SUMMARY | 2024-08-19 16:01 | XMS_ITS ---
Author Organization [facility] in [place] Address [address] [place] [address] Care Team Providers Care Instrumentation Engineering Technician Name Role Phone Sebastian De Guzman Primary Care Provider [phone] REASON FOR VISIT mammogram Encounters Encounter Location Date Provider Diagnosis [facility] [address] [place] [id number] 08/19/2024 Sebastian Antolinandry Plan Of Treatment Next Appt Details Provider Name:Sebastian De Guzman, 10:00:00 AM, [address] [place], [address], Progress Notes * Isi MCLEANDOB:1985 (39 yo F)Acc No.[id number]:08/19/2024 Patient: Jarvis CHAMORRO Isi :1985 A ge:39 Y S ex:Female Address:[place], [address] * true * Date: Generated for Manii barbara/Fabernadetteg/eTransmitting on: 0 10/21/2024 08:22 AM EDT
--- OUTSIDE RECORDS SUMMARY | 2024-10-21 08:22 | XMS_ITS | Patient Health Record ---
Author Organization [facility] Address [address] [place] [address] Care Team Providers Care Kitchenhand Name Role Phone PCP, NO Primary Care Provider Claudio Cruz Unavailable [phone] Kunal Cadena Unavailable [phone] Results Component Value Reference Range Notes Surgery Scheduling (Not yet reviewed by provider) Interpretation: Performing Lab: Notes/Report: Primary Insurance Company: [employer] Surgeon/Assist: ST GALARZA/DEEPA OR KUNAL Surgery Location: [facility] Surgery Date & Time: 11/04/24 @ 8:30AM Hosp arrival time day of: 5:30AM Surgery End Time: 10:00AM Procedure: L5-S1 DECOMPRESSION AND LEFT MICRO DISCECTOMY Special Equipment: SSEP, PRONE, MATHEW TABLE, C-ARM C-Arm: YES Diagnosis: M48.062 STENOSIS Admission Type: OUTPATIENT Anesthesia Type/CPNB: GENERAL Bed 23 HOURS Post-op Appointment Date: 12/25/24 @ 11:20AM ANNE MARIE Latex Allergy NO Lab Location: [place] Lab Date/Time: [facility] Portrait Painter: LASHELL Yepez Physician: DR YVETTE Yepez Appt Date/T 10/26/24 @ 10:00AM History & Physical Appointme nt Date/: 10/23/24 @ 11:50AM Reason For Referral Reason date ext requested on-line/ APPROVED for sx/ L5-S1 DECOMPRESSION & LEFT MICRODISCECTOMY 17778, 82440 Diagnosis 1 Other intervertebral disc displacement, lumbosacral region (M51.27) Diagnosis 2 Other intervertebral disc degeneration, lumbosacral region with discogenic back pain and lower extremity pain (M51.372) Diagnosis 3 Spinal stenosis, lum bosacral region (M48.07) Referral Organization [facility] Referring Provider First Name Claudio Referring Provider Last Name St Galarza Referring Provider Speciality Orthopedic Surgery Referred Organization [facility] Referred Address [address],[place], [place],[id number],[place] General Notes Kunal Cadena 11:13:55 AM >, Rosi Ceballos 06/29/2024 07:45:40 AM >need icd and cpt codes for L5-S1 DECOMPRESSION & LEFT MICRODISCECTOMY, Rsoi Ceballos 06/29/2024 12:32:02 PM >please check note from grady 06/26/2024, Kristine Couch 06/29/2024 02:30:07 PM >ok, I would add all dx related to L5-S1 if these are the same dx the extraction operator uses. tksLin Charlotte 06/30/2024 01:06:54 PM >i need the icd codes that correspond with the cpt codes so i can request them to be added to the claim.... please and thank you, Brenna Garvey 06/30/2024 01:31:37 PM >They are listed under the title Diagnosis , Rosi Ceballos 06/30/2024 02:44:39 PM >I see those dx; but they don't match the level. dx are for lumbar; procedure is being done on the lumbosacral L5-S1, Brenna Garvey 06/30/2024 03:04:59 PM >sorry that is what was in the chart when I originally answered, I see that it has now been changed, Rosi Ceballos 07/01/2024 02:09:25 PM >uploaded note requesting additional dx to added to claim; will submit for sx once dx are allowed, Lashell Stone 07/15/2024 11:36:33 AM >ANY UPDATES, PATIENT JUST CALLED AND ASK, Rosi Ceballos 07/15/2024 01:55:59 PM >checked the dept of labor web site and the strain is the only dx; called Jyoti @ dept of labor and for a call back with status of add dx, Rosi Ceballos 07/21/2024 02:08:14 PM >called again and lm for a call back, Rosi Ceballos 08/13/2024 11:47:54 AM >received a call from Yvonne/dept of labor; returned her call and LM for a call back, Faiza Rodriguez 08/24/2024 02:58:46 PM > rcvd a message from the patient her dx are allowed and she wanted us to submit for sx. Her clm is now allowed for S39.012, M54.16 and M51.27, Rosi Ceballos 09/04/2024 11:06:09 AM >REQUEST FOR SX HAS BEEN PENDED FOR FURTHER DEVELOPMENT SEE Jennifer CRENSHAW Jessika 09/30/2024 02:36:13 PM > sx is now approved, see Bertha crenshaw Dawn 10/01/2024 09:11:52 AM >SCHEDULED FOR SURGERY 11/04/24Lin [place] 10/01/2024 11:03:40 AM >requested date extension on-line Referral Priority Stat Medications Medication SIG (Take, Route, Fr equency, Duration) Notes Start Date End Date Status gabapentin 300 mg 1 cap(s) orally 3 ti mes a day for 30 day(s) 08/03/2024 Active gabapentin 300 mg 1 cap(s) orally 3 ti mes a day for 30 day(s) 09/17/2024 Active gabapentin 300 mg 1 cap(s) orally 3 ti mes a day for 30 day(s) 06/26/2024 Active Social History Tobacco Use: Social History Observation Description Date Details (start date - stop date) Never Smoker NA - NA Smoking History Question Answer Notes Smoking Status NonSmoker AUDIT-C (Standard) Question Answer Notes Did you have a drink contain ing alcohol in the past year? Yes How often did you have six o r more drinks on one occasion in the past year? Never (0 point) How many drinks did you have on a typical day when you were drinking in the past year? 3 or 4 drinks (1 point) How often did you have a dri nk containing alcohol in the past year? 2 to 3 times a week (3 points) Problems Problem Type SNOMED Code ICD Code Onset Dates Problem Status W/U Status Risk Notes Problem Lumbosacral radiculopathy (0266181) Lumbosacral radiculopathy (M54.17) Active confirmed Problem 189664646 Spinal stenosis, lumbosacral region (M48.07) Active confirmed Problem 65564214 Other intervertebral disc displacement, lumbosacral region (M51.27) Active confirmed Problem [id number] HNP (herniated nucleus pulposus), lumbar (M51.26) Active confirmed Problem 44078783 Lumbar stenosis with neurogenic claudication (M48.062) Active confirmed Problem Displacement of lumbar intervertebral disc without myelopathy (93462431) Herniation of intervertebral disc between L5 and S1 (M51.27) Active confirmed Problem Lumbosacral stenosis (102350180) Lumbosacral stenosis (M48.07) Active confirmed Problem 53141161 Degeneration of intervertebral disc of lumbar region with discogenic back pain and lower extremity pain (M51.362) Active confirmed Problem Degeneration of intervertebral disc of lumbosacral region with discogenic back pain and lower extremity pain (M51.372) Active confirmed Vital Signs Height 5 ft 6 in in 06/26/2024 Weight 155 lbs 06/26/2024 BMI 25.01 06/26/2024 Procedures Procedure Date Ordered Date Performed Result Body Sit e EKG 10/06/2024 N/A Encounters Encounter Location Date Provider Diagnosis [facility] [address] [place] [phone] 06/26/2024 Kunal Cadena Degeneration of intervertebral disc of lumbar region with discogenic back pain and lower extremity pain M51.362 ; Degeneration of intervertebral disc of lumbosacral region with discogenic back pain and lower extremity pain M51.372 ; Herniation of intervertebral disc between L5 and S1 M51.27 ; Lumbosacral stenosis M48.07 and Lumbosacral radiculopathy M54.17 [facility] [address] [place] [address] 08/03/2024 Claudio Brand Lumbosacral radiculopathy M54.17 ; Herniation of intervertebral disc between L5 and S1 M51.27 and Lumbosacral stenosis M48.07 [facility] [address] [place] [address] 09/16/2024 Selvon Cathie Lumbosacral radiculopathy M54.17 and Lumbosacral stenosis M48.07 [facility] [address] [place] [address] 10/06/2024 Claudio Hardy Clair Lumbosacral radiculopathy M54.17 ; Lumbosacral stenosis M48.07 and Herniation of intervertebral disc between L5 and S1 M51.27 Assessments Encounter Date Diagnosis (ICD Code) Assessment Notes Treatment Notes Treatment Clinical Notes Section Notes 06/26/2024 Degeneration of intervertebral disc of lumbar region with discogenic back pain and lower extremity pain (ICD-10 - M51.362) 1. L2-3 and L5-S1 degenerative disc disease 2. L5-S1 disc herniation with stenosis and radiculopathy 06/26/2024 Degeneration of intervertebral disc of lumbosacral region with discogenic back pain and lower extremity pain (ICD-10 - M51.372) 1. L2-3 and L5-S1 degenerative disc disease 2. L5-S1 disc herniation with stenosis and radiculopathy 08/03/2024 Lumbosacral radiculopathy (ICD-10 - M54.17) 08/03/2024 Herniation of intervertebral disc between L5 and S1 (ICD-10 - M51.27) 09/16/2024 Lumbosacral radiculopathy (ICD-10 - M54.17) 09/16/2024 Lumbosacral stenosis (ICD-10 - M48.07) 10/06/2024 Lumbosacral radiculopathy (ICD-10 - M54.17) 10/06/2024 Lumbosacral stenosis (ICD-10 - M48.07) 06/26/2024 Herniation of intervertebral disc between L5 and S1 (ICD-10 - M51.27) 1. L2-3 and L5-S1 degenerative disc disease 2. L5-S1 disc herniation with stenosis and radiculopathy 10/06/2024 Herniation of intervertebral disc between L5 and S1 (ICD-10 - M51.27) 08/03/2024 Lumbosacral stenosis (ICD-10 - M48.07) 06/26/2024 Lumbosacral stenosis (ICD-10 - M48.07) 1. L2-3 and L5-S1 degenerative disc disease 2. L5-S1 disc herniation with stenosis and radiculopathy 06/26/2024 Lumbosacral radiculopathy (ICD-10 - M54.17) 1. L2-3 and L5-S1 degenerative disc disease 2. L5-S1 disc herniation with stenosis and radiculopathy 06/26/2024 Other Plan established by Dr. Matthews. MRI report reviewed and discussed with the patient. The recommended surgery is a L5-S1 decompression and left microdiscectomy. Risk, benefits and alternatives to surgery were discussed. Risk include but not limited to infection, hematoma, dural tear, nerve root injury, paralysis, reherniation requiring fusion, DVT/PE, LA, stroke etc. Patient would like to proceed with surgical intervention at this point given failure with conservative measures and physical therapy. We do need the MRI disc to review the imaging, current surgery recommendation is based off of the report. She was given prescriptions for tramadol, Medrol Dosepak and Neurontin. We will also continue to keep her off work. We will see her back in our office for a preoperative history and physical to discuss surgery in further detail pending medical clearance. The patient is very much in agreement with the treatment and/or diagnostic plan set forth and all questions were answered to the patient's satisfaction. Thanks once again. If we can be of further service to your patients with disorders of the spine, cervical, thoracic, or lumbar, please do not hesitate to contact Dr. Matthews. Best regards, 1. L2-3 and L5-S1 degenerative disc disease 2. L5-S1 disc herniation with stenosis and radiculopathy Plan Of Treatment Pending Test Test Name Order Date Chest 2 views - 17940 10/06/2024 Lumbar spine 2v flex and ext - 74814 CBC 10/06/2024 PT/PTT 10/06/2024 BMP 10/06/2024 Surgery Scheduling 10/06/2024 MRSA (Bilateral Nares) PCR 10/06/2024 EKG 10/06/2024 Next Appt Details Provider Name:Claudio Hardy [employer], 10/23/2024 11:50:00 AM, [address] [place] [address], [phone], Provider Name:Claudio Hardy [facility], 11/04/2024 08:30:00 AM, [address], [address], [place], [place], [phone], Provider Name:Claudio Bryson, 12/25/2024 11:20:00 AM, [address] [facility], [place], [address], Insurance Providers Payer Name Payer Address Payer Phone Subscriber Number Group Number Insured Name Patient Relationship to Insured Coverage Start Date Coverage End Date [facility] [employer] [address] [facility] [place] [address] [id number] DOI 24 DONAVAN MCLEAN Self - patient is the insured 5 Medical (General) History Medical History History ICD Code Have you been seen by a dentist in the l ast year?: Yes Do you have any dental probl ems i.e. Broken, loose, or chipped teeth, absess, gum disease?: Yes
--- OUTSIDE RECORDS SUMMARY | 2024-10-21 08:23 | XMS_ITS | Patient Health Record ---
Author Organization [facility] in [place] Address [address] [place] [address] Care Team Providers Care Winding Department Supervisor Name Role Phone GegeSebastian Primary Care Provider Allergies No Known Allergies Results Component Value Reference Range Notes CBC AUTO DIFF Reviewed date:08/14/2024 01:06:25 PM Interpretation: Performing Lab: Notes/Report: [facility] , White Blood Count 4.7 4.0-11.0 10 3/uL Red Blood Count 3.94 4.20-5.40 10 6/uL Hemoglobin 12.5 12.0-16.0 g/dL Hematocrit 37.7 36.0-48.0 % Mean Corpuscular Volume 95.7 81.0-99.0 fL Mean Corpuscular Hemoglobin 31.7 26.7-34.0 pg Mean Corpuscular HGB Conc 33.2 29.9-35.2 g/dL Red Cell Distribution Width 12.2 11.0-15.0 % Platelet Count 271 150-450 10 3/uL Mean Platelet Volume 9.5 9.5-13.5 fL Neutrophils Percent Auto 54.0 43.0-75.0 % Lymphocytes Percent Auto 33.6 20.5-60.0 % Monocytes Percent Auto 7.7 1.7-12.0 % Eosinophils Percent Auto 3.2 0.9-7.0 % Basophils Percent Auto 1.1 0.2-2.0 % Immature Granulocytes Pct Auto 0.4 0.0-0.5 % Neutrophils Absolute Auto 2.5 1.4-6.5 10 3/uL Lymphocytes Absolute Auto 1.6 1.2-3.8 10 3/uL Monocytes Absolute Auto 0.4 0.3-0.8 10 3/uL Eosinophils Absolute Auto 0.2 0.0-0.7 10 3/uL Basophils Absolute Auto 0.1 0.0-0.1 10 3/uL Immature Granulocytes Abs Auto 0.02 0.00-0.03 10 3/uL Performing Lab: see note ML - [facility] TSH Reviewed date:08/14/2024 01:06:25 PM Interpretation: Performing Lab: Notes/Report: [facility] , Thyroid Stimulating Hormone 1.175 0.358-3.740 uIU/mL Performing Lab: see note ML - [facility] T4 Reviewed date:08/14/2024 01:06:25 PM Interpretation: Performing Lab: Notes/Report: [facility] , T4 Thyroxine 5.10 4.80-13.90 ug/dL Performing Lab: see note - [facility] PROF 14(COMP METB) Reviewed date:08/14/2024 01:06:25 PM Interpretation: Performing Lab: Notes/Report: [facility] , Sodium 140 136-145 mmol/L Potassium 4.4 3.5-5.1 mmol/L Chloride 103 98-107 mmol/L Carbon Dioxide 30.5 21.0-32.0 mmol/L Anion Gap 10.9 Glucose 88 74-106 mg/dL Blood Urea Nitrogen 14.0 7.0-18.0 mg/dL Creatinine 0.80 0.55-1.02 mg/dL Estimated GFR ( Patricia >60 >=60 mL/min/1.73m 2 Estimated GFR (Non- Adenike >60 >=60 mL/min/1.73m 2 BUN Creatinine Ratio 17.5 Calcium 8.9 8.5-10.1 mg/dL Bilirubin Total 0.5 0.2-1.0 mg/dL Aspartate Amino Transferase 11 15-37 U/L Alanine Aminotransferase 17 14-59 U/L Alkaline Phosphatase 64 46-116 U/L Total Protein 7.0 6.4-8.2 g/dL Albumin Level 3.9 3.4-5.0 g/dL Globulin 3.1 Albumin Globulin Ratio 1.3 Performing Lab: see note ML - [facility] LB LIPID PROFILE Reviewed date:08/14/2024 01:06:25 PM Interpretation: Performing Lab: Notes/Report: [facility] , Triglycerides 52 <=150 mg/dL Cholesterol 176 <=200 mg/dL HDL Cholesterol 81 40-60 mg/dL > or =60 mg/dl - LOW CARDIOVASCULAR RISK <40 mg/dl - HIGH CARDIOVASCULAR RISK LDL Cholesterol Calculated 85.0 <100 mg/dl OPTIMAL 100-129 mg/dl NEAR OR ABOVE OPTIMAL 130-159 mg/dl BORDERLINE HIGH 160-189 mg/dl HIGH >190 mg/dl VERY HIGH VLDL CHOLESTEROL 10.4 Chol HDL Ratio 2.2 3.3 - 4.4 LOW RISK 4.4 - 7.1 AVERAGE RISK 7.1 - 11.0 MODERATE RISK >11.0 HIGH RISK Performing Lab: see note ML - [facility] LB GLYCOHEMOGLOBIN A1C Reviewed date:08/14/2024 01:06:25 PM Interpretation: Performing Lab: Notes/Report: [facility] , Glycohemoglobin A1C 5.0 4.5-6.2 % ADA RECOMMENDED LIMIT 4.0 - 6.0 ADA THERAPEUTIC TARGET < 7.0 ACTION SUGGESTED > 7.0 Estimated Average Glucose 97 Performing Lab: see note ML - [facility] FREE T3 Reviewed date:08/14/2024 01:06:25 PM Interpretation: Performing Lab: Notes/Report: [facility] , Free T3 2.83 2.18-3.98 pg/mL Performing Lab: see note ML - [facility] LB HCG Qualitative* Reviewed date:09/23/2024 12:51:41 PM Interpretation: Performing Lab: Notes/Report: [facility] , HCG Qualitative NEGATIVE NEGATIVE Performing Lab: see note ML - [facility] MM tomosynthesis screening B I Reviewed date:08/19/2024 08:01:40 PM Interpretation: Performing Lab: Notes/Report: Source Facility: [facility] [place] [address] [place] [address] Mammography Report Signed Patient: DONAVAN MCLEAN MR#: [id number] : 1985 Acct:[id number] Age/Sex: 39 / F ADM Date: 08/19/24 Loc: MAMMO Attending Dr: Angelo Crawford M.D. Ordering Physician: Angelo Crawford M.D. Results: Date of Service: 08/19/24 Follow Up: Procedure(s): MM tomosynthesis screening BI Accession Number(s): [id number] cc: Angelo Crawford M.D. Patient Name: DONAVAN MCLEAN MR#: [id number] : 1985 Exam Date: 08/19/2024 Ordering Doctor: DR ANGELO CRAWFORD . RADIOLOGY REPORT PROCEDURE: MM TOMOSYNTHESIS SCREENING BI COMPARISON: None. INDICATIONS: Screening Calculator Name NCI Breast Cancer Risk Assessment Tool 5 Year Breast Cancer Risk 0.70% Lifetime Breast Cancer Risk 11.00% Personal Breast Cancer No Personal Ovarian Cancer No Treatments None Family Cancers Grandfather-paternal with colon cancer at age 81; Aunt-paternal with colon cancer at age 45; Cousin-paternal with colon cancer at age 24. LOCATION: [facility] BREAST COMPOSITION: There are scattered areas of fibroglandular density. FINDINGS: DIAGNOSTIC CATEGORY 1--NEGATIVE. RIGHT BREAST: No significant suspicious finding. LEFT BREAST: No significant suspicious finding. RECOMMENDATIONS: ROUTINE MAMMOGRAM AND CLINICAL EVALUATION IN 12 MONTHS. PLEASE NOTE: A NORMAL MAMMOGRAM DOES NOT EXCLUDE THE POSSIBILITY OF BREAST CANCER. A CLINICALLY SUSPICIOUS PALPABLE LUMP SHOULD BE BIOPSIED. Dictated by: Kamran Retana DO on 08/19/2024 at 16:04 Approved by: Kamran Retana DO on 08/19/2024 at 16:06 Dictated By: Kamran Retana M.D. Signed By: 08/19/24 1607 DD/ 1606 TD/TT: [place]: [place] [address] Mammography Report Signed Patient: DONAVAN MCLEAN MR#: [id number] : 1985 Acct:[id number] Age/Sex: 39 / F ADM Date: 08/19/24 Loc: MAMMO Attending Dr: Isacc Crawford M.D. Ordering Physician: Angelo Crawford M.D. Results: Date of Service: 08/19/24 Follow Up: Procedure(s): MM tomosynthesis screening BI Accession Number(s): [id number] cc: Angelo Crawford M.D. Patient Name: DONAVAN MCLEAN MR#: [id number] : 1985 Exam Date: 08/19/2024 Ordering Doctor: DR ANGELO CRAWFORD . RADIOLOGY REPORT PROCEDURE: MM TOMOSYNTHESIS SCREENING BI COMPARISON: None. INDICATIONS: Screening Calculator Name NCI Breast Cancer Risk Assessment Tool 5 Year Breast Cancer Risk 0.70% Lifetime Breast Canc er Risk 11.00% Personal Breast Canc er No Personal Ovarian Cancer No Treatments None Family Cancers Grandfather-paternal with colon cancer at age 81; Aunt-paternal with colon cancer at age 45; Cousin-paternal with colon cancer at age 24. LOCATION: [facility] BREAST COMPOSITION: There are scattered areas of fibroglandular density. FINDINGS: DIAGNOSTIC CATEGORY 1--NEGATIVE. RIGHT BREAST: No significant suspicious finding. LEFT BREAST: No significant suspicious finding. RECOMMENDATIONS: ROUTINE MAMMOGRAM AN D CLINICAL EVALUATION IN 12 MONTHS. PLEASE NOTE: A JAMES L MAMMOGRAM DOES NOT EXCLUDE THE POSSIBILITY OF BREAST CANCER. A CLINICALLY SUSPICIOUS PALPABLE LUMP SHOULD BE BIOPSIED. Dictated by: Kamran Retana DO on 08/19/2024 at 16:04 Approved by: Kamran Retana DO on 08/19/2024 at 16:06 Dictated By: Kamran Retana M.D. Signed By: 08/19/24 1607 DD/ 1606 TD/TT: [place]: Reason For Referral Reason screenign colonoscop y - + FH young - 43 year ok abd 23 year old Diagnosis 1 Well adult (Z00.00) Referral Organization [facility] Referring Provider First Name Sebastian Referring Provider Last Name Gege Referring Provider Speciality Family Med cliff Referred Provider Herman Verdin Referred Provider Specialty General Surg scotty Referral Priority Routine Medications Medication SIG (Take, Route, Fr equency, [...] W/U Status Risk Notes Problem Well adult (997345467) Well adult (Z00.00) Active confirmed Vital Signs Blood pressure diastolic 80 mm Hg 08/12/2024 Height 66 in 08/12/2024 Blood pressure systolic 124 mm Hg 08/12/2024 Weight 159.0 lbs 08/12/2024 BMI 25.66 kg/m2 08/12/2024 Encounters Encounter Location Date Provider Diagnosis [facility] [address] [place] [address] 08/14/2024 Sebastian Gege [facility] [address] [place] [address] 08/19/2024 Sebastian Dangeloandry [facility] [address] [place] [address] 08/12/2024 Sebastian Crawford Well adult Z00.0 0 Assessments Encounter Date [...] w/eGFR CKD-EPI 2024 CBC WITH DIFF 08/12/2024 Next Appt Details Provider Name:Sebsatian Willingham Gege, 10:00:00 AM, [address] [place], [address], Insurance Providers Payer Name Payer Address Payer Phone Subscriber Number Group Number Insured Name Patient Relationship to Insured Coverage Start Date Coverage End Date [employer] [address] [place] [address] [id number] Donavan Mclean Self - patient is the insured Medical (General) History Surgical History Surgery Date(Month/Year) colonoscopy dr verdin 09/23/2024 breast augmentation 2020
--- NOTE | 2024-10-21 08:38 | XR_ITS ---
[facility] [place] [id number] Patient Name: DONAVAN MCLEAN MRN: [id number] date: 1985 Sex: F Assigned Patient Location: LAB Current Patient Location: LAB Accession/Order Number: [id number] Exam Date: 10/21/2024 09:00 Report Date: 10/21/2024 09:06 At the request of: TREY NGO MD Procedure: XR chest 2V PA AND LATERAL CHEST: CLINICAL HISTORY: Pre Operative clearance COMPARISON: None There is artifact from bilateral breast implants. There is no focal parenchymal consolidation, effusion or pneumothorax. The cardiac, hilar and mediastinal silhouettes are within normal limits. There is no vascular congestion. The visualized bony thorax is intact. XR/XR chest 2V IMPRESSION: NO ACUTE CARDIOPULMONARY ABNORMALITY. Impression dictated by: Kiara Tinoco M.D. 10/21/2024 9:06 AM Dictation Location: [place] [address] Electronically authenticated by: [id number] Y Date: 10/21/2024 09:06
[2024-10-21 08:42] LABS: Hematocrit 37.1 % (36.0-48.0); Hemoglobin 12.6 g/dL (12.0-16.0); Immature Granulocytes Abs Auto 0.01 10^3/uL (0.00-0.03); Immature Granulocytes Pct Auto 0.2 % (0.0-0.5); Lymphocytes Absolute Auto 1.5 10^3/uL (1.2-3.8); Mean Corpuscular HGB Conc 34.0 g/dL (29.9-35.2); Mean Corpuscular Hemoglobin 31.7 pg (26.7-34.0); Mean Corpuscular Volume 93.2 fL (81.0-99.0); Platelet Count 256 10^3/uL (150-450); Red Blood Count 3.98 10^6/uL (4.20-5.40); White Blood Count 5.0 10^3/uL (4.0-11.0)
[2024-10-21 08:54] LABS: Anion Gap 14.5; Blood Urea Nitrogen 18.0 mg/dL (7.0-18.0); Calcium 8.5 mg/dL (8.5-10.1); Carbon Dioxide 25.7 mmol/L (21.0-32.0); Chloride 107 mmol/L (98-107); Estimated GFR (African America >60 (>=60 mL/min/1.73m^2); Estimated GFR (Non-African Ame >60 (>=60 mL/min/1.73m^2); Glucose 91 mg/dL (74-106); Potassium 4.2 mmol/L (3.5-5.1); Sodium 143 mmol/L (136-145)
--- NOTE | 2024-10-21 09:05 | ECG_ITS ---
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
[2024-10-21 09:13] LABS: INR 0.97; Partial Thromboplastin Time 29.2 sec (22.3-36.2); Prothrombin Time 10.3 sec (9.0-11.6)
== END 2024-10-21 08:20 | disposition home or self-care (01) ==
LOC: LAB 08:20
PROVIDERS: PCP Family Medicine; Visit Provider Orthopaedic Surgery Orthopaedic Surgery of the Spine
DX: M48.07 Spinal stenosis, lumbosacral region (principal)
CPT/HCPCS: 36415; 71046; 80048; 85025; 85610; 85730; 87081; 93005

== ENCOUNTER 2025-02-24 08:13 | Outpatient (OUT) | payer BC, SELFPAY ==
--- OUTSIDE RECORDS SUMMARY | 2025-02-24 08:17 | XMS_ITS | CCD ---
Author Organization [facility] Care Team Providers Care [employer] Officer Name Role Phone NO FAMILY, PHYSICIAN Primary Care Provider Unava ilable Radatz DO, Edward Attending Provider [phone] Angelo De Guzman Primary Care Physician NO FAMILY, PHYSICIAN Primary Care Provider Unava ilable Radatz DO, Edward Attending Provider Angelo De Guzman Referring Unavailable Herman CARRILLO Attending Unavailable Herman CARRILLO Attending Unavailable NO FAMILY, PHYSICIAN Primary Care Provider Unava ilable Radatz DO, Edward Attending Provider NO FAMILY, PHYSICIAN Primary Care Provider Unava ilable Radatz DO, Edward Attending Provider [phone] Radatz Jr, Edward Attending Unavailable Radatz Jr, [...] Admitting Unavailable Radatz Jr, Edward Attending Unavailable Thor Coyne Jr Admitting Unavailable NO FAMILY, PHYSICIAN Primary Care Unavailable Allergies Allergy ClassificationReported Allergen(s)Allergy TypeDate of OnsetReaction(s) Facility (1 source)No Known Medication Allergies; Translations: [No Known Medication Allergies]Propensity to adverse reactions (disorder)[facility] Repository Medications Current Medications MedicationDrug Class(es)DatesSig (Normalized)Sig (Original)gabapentin 300 mg oral capsule (1 source)Anti-epileptic AgentStart: 41-45-1021vpem 1 capsule by mouth three times dailygabapentin 300 mg Cap 300 mg = 1 cap(s), Oral, TID, Refills(s) 0 Start Date: 08/24/24 Status: Ordered Repeat number: 1ibuprofen 800 mg oral tablet (1 source)Nonsteroidal Anti-inflammatory DrugStart: 31-00-2436btva 1 tablet by mouth three times daily as needed for painibuprofen 800 mg Tab 800 mg = 1 tab(s), Oral, TID, PRN as needed for pain, Refills(s) 0 Start Date:09/02/24 Status: Ordered Repeat number: 1methocarbamol 750 mg oral tablet (1 source)Muscle RelaxantStart: 64-89-9719jcoq 1 tablet by mouth every four hoursmethocarbamol 750 mg Tab 750 mg = 1 tab(s), Oral, q4hr, Refills(s) 0 Start Date: 08/24/24 Status: Ordered Repeat number: 1 Problems Active Problems Problem ClassificationProblemDateDocumented DateEpisodic/ChronicOther nutritional; endocrine; and metabolic disorders (1 source)Ooauompipd82-44-2429CojvapvdDuzua nutritional; endocrine; and metabolic disorders (1 source)Overweight in adulthood with body mass index of 25 or more but less than 5709-24-2849JeucoqzvZvhwdorb codes; unclassified (1 source)Family history of malignant neoplasm of digestive organ; Translations: [Family history of malignantneoplasm of digestive organs]Onset: 09-02-2024 EpisodicResidual codes; unclassified (1 source)Family history of cancer of -08-9272VnugnieuDlrwwvntnyk; intervertebral disc disorders; other back problems (2 sources)Disorder of lumbar disc; Translations: [Other intervertebral disc displacement, lumbosacral region]Onset: 15-86-513599962211-03-7456OowutkxRncmyspqffu; intervertebral disc disorders; other back problems (1 source)Radiculopathy, lumbar region; Translations: [Radiculopathy, lumbar region]Onset: 42-37-0291GttgtixzXazbwtyasmhi (1 source)Low back pain, unspecified; Translations: [Low back pain, unspecified] Onset: 05-28-2024 Past or Other Problems Problem ClassificationProblemDateDocumented DateEpisodic/ChronicSprains and strains (1 source)Strain of muscle, fascia and tendon of lower back, initial encounter; Translations: [Strain of muscle, fascia and tendon of lower back, initial encounter]Onset: 20-36-6694Fxkblhnx Results Test NameValueInterpretationReference RangeFacilityReminderson 09-25-2024 RemindersReminders From: Katia Aguayo LPN To: N - Clinical; Sent: 09/25/2024 08:23:45 EDT Show up: 08/23/2029 07:00:00 EDT Subject: colonoscopy recall Due Date/Time: 09/23/2029 07:00:00 EDT Reminder/Recall Patient due for surveillance colonoscopy 09/23/2029 due to family history of colon cancer.[facility]Amb[facility] Visit Summaryon 36-28-8996Ppsdryozuw Visit SummaryAmbulatory Visit Summary DONAVAN MCLEAN :1985 Visit Date:09/02/2024 [...] times a day as needed for as neededfor pain Contact prescribing physician if questions or [...] you for choosing us for your care. [facility] Centergnetic resonance imaging reportOrdered By: Tom Hauser on 40-94-4478Mdjvq reportPRE[facility] [place] [address] MRI Report Signed Patient: Donavan Mclean MR#: [id number] : 1985 Acct:[id number] Age/Sex: 39 / F ADM Date: 5 Loc: [facility] Room: Type: [facility] Attending Dr: Thor Coyne Jr, DO Copies to: Thor Coyne DO~ Ordering Provider: Thor Coyne DO Date of Service: 06/10/24 MR/MR lumbar spine wo con: S39.012A ([id number]) XR/XR pre/post mri xray: S39.012A 2 views [...] L5-S1 and mild disc space narrowing elsewhere. Jeph-gh-gjxzkqol facet arthropathy L4- S1. Mild degenerative changes of the sacroiliac joints. MRI lumbar spine: Lumbar vertebral heights are maintained. Minimal straightening. Degenerative endplate marrow changes L5-S1 L2-L3. The conus medullaris terminates normally at L1-L2. The paraspinal soft tissues are unremarkable T11-L1: No significant disease, disc protrusion central canal or neural from narrowing. L1-2: Broad-based disc bulge with small left subarticular protrusion. Mild facet arthropathy. [place] neural foraminal are patent. L2-3: Circumferential bulge. Small superimposed central protrusion extending cranially. No central canal narrowing. There is minor neural foraminal narrowing. Mild facet arthropathy L3-4: Minimal broad-based bulge. Ktkd-ta-mhwikrdf facet arthropathy. No central canal or neural [...] Otherwise negative for acute compression fracture. Otherwise Inrv-jj-qskvhumj multilevel degenerative change. Impression dictated by: Tom Hauser M.D.06/10/2024 3:40 PM Dictation Location: [place] [address] Transcribed By: [facility] 06/10/24 1540 Dictated By: Tom Hauser MD 06/10/24 1530 Signed By: 06/10/24 1540 [facility] Work Phone: XR pre/post mri xrayon 66-64-2050LJ pre/post mri xray [facility] [place] [address] MRI Report Signed Patient: Donavan Mclean MR#: [id number] : 1985 Acct:[id number] Age/Sex: 39 / F ADM Date: 06/10/24 Loc: [facility] Room: Type: [facility] Attending Dr: Thor Coyne Jr, DO Copies to: Thor Coyne DO Ordering Provider: Thor Coyne DO Date of Service: 06/10/24 MR/MR lumbar spine wo con: S39.012A ([id number]) XR/XR pre/post mri xray: S39.012A 2 views [...] L5-S1 and mild disc space narrowing elsewhere. Owlf-kb-fruagyeg facet arthropathy L4-S1. Mild degenerative changes of [...] Mild facet arthropathy L3-4: Minimal broad-based bulge. Izfm-tp-iagcgxef facet arthropathy. No central canal or neural [...] Otherwise negative for acute compression fracture. Otherwise Nrbg-lc-qcieqeui multilevel degenerative change. Impression dictated by: Tom Hauser M.D.06/10/2024 3:40 PM Dictation Location: [place] [address] Transcribed By: [facility] 06/10/24 1540 Dictated By: Tom Hauser MD 06/10/24 1530 Signed By: 06/10/24 1540[facility] Vital Signs Date TimeVital SignValuePerforming AjteutpcmUckwdxue94-30-7784 14:13-0400Blood Pressure LocationMichael NILL [phone]-VqgjkMer[facility] [place] 09-02-2024 14:13-0400Diastolic blood enxprnll71 mm[Hg]Herman NILL [phone]-MgcjxMer[facility] [place] 09-02-2024 14:13-0400Heart rate70 /minMichael NILL [phone]-CddjnMer[facility] Health [facility] [place] 09-02-2024 14:13-0400Respiratory rate16 /minMichael NILL [phone]-QzhkzMer[facility] [place] 09-02-2024 14:13-0400Systolic blood iryzhyrx145 mm[Hg]Herman NILL [phone]-DahquMercy Health [facility] [place] Encounters Encounter DateEncounter TypeCare ProviderFacilityStart: 12-30-2024 End: 71-14-8240gvdlaktptqUQBDKTIGB [facility] Work Phone: Start: 12-30-2024 End: 28-73-2214Dusmmfq encounter procedureThor Coyne DO-[facility] [address] Work Phone: start: 10-22-2024 End: 04-34-6941Yhjfuwk encounter procedureEdward Blayne Radatz DO-[facility] [address] Work Phone: start: 10-22-2024 End: 87-09-7399xumnceiazhVBGUTMTGU NO [facility] Work Phone: Start: 09-23-2024 End: 73-64-8896qrwaixfqjzUgvgvto R NILLFacility:CD:[id number]: 09-11-2024 End: 66-93-5553Ujikltr encounter procedurePHYSICIAN NO [facility] [address] Work Phone: start: 09-11-2024 End: 55-56-3055bllszvvwnoBACKJAEGB NO [facility] Work Phone: Start: 09-02-2024 End: 81-27-2963cvutdsasvwMhuyyfb HoyFacility: tart: 09-02-2024 End: 22-83-2876Jvitecm encounter procedureMichael R NILL [phone]-ZfdhgK[facility] [place] Start: 21-20-1843ozvzmypzxwIwyiqzp HoyFacility: [place]vueStart: 07-24-2024 End: 22-85-9119Moflfmw encounter procedurePHYSICIAN NO [facility] [address] Work Phone: start: 07-24-2024 End: 75-32-2734lqpsbllcwmUXNCGUMIA NO [facility] Work Phone: Start: 06-12-2024 End: 55-86-6906bqkqzsetlmLQKZPLDBV NO [facility] Work Phone: Start: 06-12-2024 End: 87-52-4397Szjeqbs encounter procedurePHYSICIAN NO [facility] [address] Work Phone: start: 06-10-2024 End: 39-03-6666Zyjjald encounter procedurePHYSICIAN NO [facility] [address] Work Phone: Start: 06-10-2024 End: 67-29-9192gvcqloeknwSYSRZVAEL NO [facility] Work Phone: Start: 06-02-2024 End: 85-00-8720Tahejyo encounter procedurePHYSICIAN NO [facility] [address] Work Phone: start: 06-02-2024 End: 88-87-2541ogypupnrrrYTFJSOYEQ NO [facility] Work Phone: Start: 05-28-2024 End: 65-34-4742xdvojlwbbbQTONLDYBE NO [facility] Work Phone: Start: 05-28-2024 End: 18-04-2349Kfvdhgzrno RecurringPHYSICIAN NO [facility] [place] Work Phone: start: 39-58-9920Nosmburgrb RecurringPHYSICIAN NO [facility] [place] Work Phone: start: 05-19-2024 End: 96-79-2792Hvqdcwd encounter procedurePHYSICIAN NO [facility] [address] Work Phone: start: 05-19-2024 End: 15-99-8560cnjlhqfnytKMUPHSJPH NO [facility] Work Phone: Start: 02-14-6671Dogpkzrdem RecurringPHYSICIAN NO [facility] [place] Work Phone: start: 05-12-2024 End: 04-01-9873togonhsetqGNBCXFDXD NO [facility] Work Phone: Start: 05-12-2024 End: 41-21-3606Uarjucg encounter procedurePHYSICIAN NO [facility] [address] Work Phone: start: 05-06-2024 End: 97-30-4655nvdyfsmtmgCIUSIQHZV NO [facility] Work Phone: Start: 05-06-2024 End: 32-59-7494Exnrqcp encounter procedurePHYSICIAN NO [facility] [address] Work Phone: Procedures DateProcedureProcedure DetailPerforming ClinicianStart: 41-84-1902YM lumbar spine wo conPHYSICIAN NO FAMILYStart: 25-65-8995PQ pre/post mri xrayPHYSICIAN NO FAMILYAugmentation mammoplastyMichael NILL Payers DatePayer CategoryPayerPolicy [id number] [id number] 2..1.711125.3.57[id number] 2..1.5[id number] .1.509894.3.579.2.531 [id number] 2..1.827[id number] 2..1.993333.3.579.2.596Wtxigae23190007 2..1.424450.3.579.2.531 [id number] 2.16.840.1.5[id number] 2.16.840.1.711322.3.579.2.801Oqzwbhu91379004 2.16.840.1.203663.3.579.2.531 [id number] 2.16.840.1.11246[id number] 2.16.840.1.5061[id number] 2.16.840.1.589679.3.579.2.531 [id number] 2.16.840.1.476658.3.579.2.531 Social History DateTypeDetailFacilgeorgetown behavioral hospitalTobacco smoking status NHISUnknown if ever smokedSelect Medical Specialty [facility] Work Phone: Start: 05-12-2024 End: 43-28-7181EozEhleju (finding)[facility] Hospitaltart: 71-13-8220Iiu Assigned At [facility] Hospitaltart: 85-90-1857Xwcwbid smoking statusNever smoked tobacco (finding)[facility] HospitalTobacco smoking statusNeAdena Health SystemueSexual OrientationC[facility] Clinic [facility] Hospital Sex Assigned At [facility] Functional Status HmelZrgmwpfelaKxczkbJtmvuwgt69-66-5097Lvxpsrmjjv StatusN/AFMercy Health [facility] Clinical Note 09-02-2024 Note Date & KpmuFgepPydndlmb03-99-1625 NoteGeneral Surgery Office/Clinic Note Chief Complaint consultation for colonoscopy HPI Staff 39 year old female presents on consultation from Dr. De Guzman for surveillance colonoscopy. Denies abdominal or rectal pain. No rectal bleeding or change in bowel habits. Denies nausea, vomiting or weightloss. Never had colonoscopy in the past. Patient [...] swallowing difficulties, no hearing loss, no ear infection(s),no nose bleeds. Cardiovascular: normal blood pressure, no [...] Primary malignant neoplasm of colon: Aunt and Grandparent.[facility] HospitalComment on above:Result Comment: Electronically Signed By: LORENA LINDO, Herman Foster\Date and Time Signed: 09/02/24 14:36 EDT Evaluation + Plan note Note Date & TypeNoteFacilityEvaluation + Plan note No data available for this section [facility] [place] Evaluation note Note Date & TypeNoteFacilityEvaluation noteNo assessment information available [facility] Work Phone: Hospital Discharge instructions Note Date & TypeNoteFacilityHospital Discharge instructions No data available for this section [facility] [place] Progress note Note Date & TypeNoteFacilityProgress note No data available for this section [facility] [place] Reason for referral (narrative) Note Date & TypeNoteFacilityReason for referral (narrative)No reason for referral information availableSelect Medical [facility] Work Phone: Chief Complaint and Reason [...] M54.16, M51.27 September 11, 2024 10:56 am Chief Complaint Admit Date M54.16, M51.27 September 11, 2024 10:56 am M54.16, M51.27 October 22, 2024 11:0 1am Chief Complaint Admit Date M54.16, M51.27 October 22, 2024 11:0 1am M51.27, M54.16, S39.012A, M54.5 Septembe r 2024 10:00am Family History No Family History Records Found Relationship Condition Age at Onset Recorded Date/T kira father Heart disease Unknown HypertensionUnknownmotherHeart diseaseUnknown Advance Directives No Advanced Directives Records Found [...] Start: May 06, 2024 End: May 06, 2024Thor Coyne Jr, DOAttending ProviderActiveStart: May 06, 2024 End: May 06, 2024 Team Status: Inactive Member Role Status Dates PHYSICIAN NO FAMILY Primary Care Provider Active Start: May 12, 2024 End: May 12, 2024Edward Radatz Jr, DOAttending ProviderActiveStart: May 12, 2024 End: May 12, 2024 Team Status: Active Member Role Status Dates PHYSICIAN NO FAMILY Primary Care Provider Active Start: May 14, 2024 Edward Radatz Jr, DOAttending ProviderActiveStart: May 14, 2024 Team Status: Inactive Member Role Status Dates PHYSICIAN NO FAMILY Primary Care Provider Active Start: May 19, 2024 End: May 19, 2024Edward Radatz Jr, DOAttending ProviderActiveStart: May 19, 2024 End: May 19, 2024 Team Status: Active Member Role Status Dates PHYSICIAN NO FAMILY Primary Care Provider Active Start: May 28, 2024 Edward Radatz Jr, DOAttending ProviderActiveStart: May 28, 2024 Team Status: Inactive Member Role Status Dates PHYSICIAN NO FAMILY Primary Care Provider Active Start: June 02, 2024 End: June 02, 2024Edward Radatz Jr, DOAttending ProviderActiveStart: June 02, 2024 End: June 02, 2024 Team Status: Inactive Member Role Status Dates PHYSICIAN NO FAMILY Primary Care Provider Active Start: June 10, 2024 End: June 10, 2024Edward Radatz Jr, DOAttending ProviderActiveStart: June 10, 2024 End: June 10, 2024 Team Status: Inactive Member Role Status Dates PHYSICIAN NO FAMILY Primary Care Provider Active Start: June 12, 2024 End: June 12, 2024Edward Radatz Jr, DOAttending ProviderActiveStart: June 12, 2024 End: June 12, 2024 Team Status: Inactive Member Role Status Dates PHYSICIAN NO FAMILY Primary Care Provider Active Start: May 28, 2024 End: May 28, 2024Edward Radatz Jr, DOAttending ProviderActiveStart: May 28, 2024 End: May 28, 2024 Team Status: Inactive Member Role Status Dates PHYSICIAN NO FAMILY Primary Care Provider Active Start: July 24, 2024 End: July 24, 2024Edward Radatz Jr, DOAttending ProviderActiveStart: July 24, 2024 End: July 24, 2024 Team Status: Inactive Member Role Status Dates PHYSICIAN NO FAMILY Primary Care Provider Active Start: September 11, 2024 End: September 11, 2024EdHarshil Acsota Jr ProviderActiveStart: September 11, 2024 End: September 11, 2024 Team Status: Inactive Member Role Status Dates PHYSICIAN NO FAMILY Primary Care Provider Active Start: October 22, 2024 End: October 22, 2024Edtameka Coyne Jr, DOAttsophie ProviderActiveStart: October 22, 2024 End: October 22, 2024 Team Status: Inactive Member Role Status Dates PHYSICIAN NO FAMILY Primary Care Provider Active Start: December 30, 2024 End: December 30, 2024EdHarshil Acosta Jr ProviderActiveStart: December 30, 2024 End: December 30, 2024 Goals (unrecognized section and content) Goals [...] ized section and content) DATE CREATED AUTHOR 10/06/2024 [facility] DATE CREATED AUTHOR KESHA MANSFIELD 01/05/2025 [facility] FOR RECORDS PERTAINING TO PATIENTS WHO [...] BE BASED ON THE PRIMARY CLINICAL RECORDS. [facility]. provides no warranty or guarantee of the accuracy or completeness of information in this document.
--- NOTE | 2025-02-24 08:19 | MR_ITS ---
The [address] [address] Patient Name: DONAVAN MCLEAN MRN: [id number] date: 1985 Sex: F Assigned Patient Location: MRI Current Patient Location: MRI Accession/Order Number: [id number] Exam Date: 02/24/2025 08:35 Report Date: 02/24/2025 16:34 At the request of: DEEPA BOURNE Procedure: MR lumbar spine wo/w con MRI lumbar spine performed without with contrast INDICATION: Spinal stenosis, chronic lumbar pain since injury recurrent bilateral lower extremity numbness COMPARISON: Lumbar spine MRI 06/10/2024 Findings: There are interval postsurgical changes status post discectomy L5-S1. Otherwise minimal reversal normal lumbar lordosis. Lumbar vertebral heights are preserved. Evidence of Modic type I endplate changes L5-S1. Modic type II endplate changes at L2-3. Moderate disc space narrowing L2-3 and L5-S1. 3 mm retrolisthesis L5 on S1. Minimal Schmorl's node deformities L1-L2 and at the superior plate of L4. The conus medullaris terminates normally at L1-L2. T12-L1: Only visualized on the sagittal images. No significant disc disease, central canal or neural foraminal narrowing identified. L1-2: Tiny left central bulge. Facet arthropathy. Canal neural foramina patent. L2-L3: Broad-based disc bulge with facet arthropathy. Mild canal narrowing. Minor neural foraminal narrowing. L3-4: Minimal broad-based bulge with ulnm-fc-bvipthsj facet arthropathy. Minor central stenosis. Neuroforamina are patent. L4-5: Broad-based disc bulge asymmetric towards the right with right foraminal to extraforaminal zone bulge. Evidence of moderate facet arthropathy. There is mild canal narrowing. Mild right subarticular recess narrowing. Moderate right neural foraminal narrowing. Mild left neural foraminal narrowing. L5-S1: The postsurgical changes status post discectomy. Intermediate signal identified within the ventral thecal sac and extending into the left subarticular zone which demonstrates enhancement suggestive of granulation tissue and epidural fibrosis. There is mild enhancement involving the traversing left S1 nerve roots suggestive of neuritis.. Otherwise vgzb-er-ebvqotvx neural foraminal narrowing. MR/MR lumbar spine wo/w con IMPRESSION: Postsurgical changes status post discectomy L5-S1 with enhancing granulation tissue and epidural fibrosis at the operative bed. No evidence of recurrent disc protrusion. Mild enhancement left S1 nerve root suggestive of neuritis. Impression dictated by: Tom Hauser M.D. 02/24/2025 4:34 PM Dictation Location: [place] [address] Electronically authenticated by: [id number] Y Date: 02/24/2025 16:34
== END 2025-02-24 08:14 | disposition home or self-care (01) ==
LOC: MRI 08:14
PROVIDERS: PCP Family Medicine
DX: M51.27 Other intervertebral disc displacement, lumbosacral region (principal); M48.07 Spinal stenosis, lumbosacral region; M54.32 Sciatica, left side; Z98.890 Other specified postprocedural states
CPT/HCPCS: 72158; A9575